=== PATIENT | female | born 1955 | race Caucasian/White ===

== ENCOUNTER 2018-04-16 13:04 | Emergency (ER) | payer BC ==
--- OUTSIDE RECORDS SUMMARY | 2018-04-16 13:07 | XMS REPORT ---
:1955 [facility] Address [address] [place] [address] Dr. Peter [address] [place] [id number] Care Team Providers Name Role Phone Unavailable Unavailable Unavailable Problems This patient has no known problems. Allergies, Adverse Reactions, Alerts This patient has no known allergies or adverse reactions. Medications This patient has no known medications.
[2018-04-16] MEDS ORDERED: ALBUTEROL 2.5 MG/3 ML NEB SOL ONE (15:04)
[2018-04-16] MEDS ORDERED: IPRATROPIUM BROM 0.5MG/2.5ML ONE (15:04)
--- NOTE | 2018-04-16 15:07 | RAD REPORT ---
EXAM DESCRIPTION: RAD - Chest Pa And Lat (2 Views) - 04/16/2018 2:55 pm CLINICAL HISTORY: Cough, shortness of breath COMPARISON: March 2017 TECHNIQUE: PA and lateral views of the chest were obtained. FINDINGS: The lungs are underinflated. No peripheral consolidations seen. Lung markings are prominen t, increased slightly from the comparison. Mild cardiomegaly is present. Vasculature is prominent. No pleural effusion or pneumothorax seen. No acute bony finding noted. No aortic abnormality. IMPRESSION: Mild cardiomegaly and prominent lung markings. Findings are increased over comparison. Findings could reflect a mild failure or volume overload. Nonspecific interstitial edema or interstit ial infiltrate possible as well.
[2018-04-16 16:17] LABS: Absolute Lymphocytes (CBC) 1.3 K/uL (0.7-4.9); Absolute Monocytes 0.5 K/uL (0.1-1.3); Absolute Neutrophil 4.9 K/uL (1.8-8.0); Basophils % 0.5 % (0-1.3); Eosinophils % 1.7 % (0-4.4); Hematocrit 44.8 % (36.0-45.0); Lymphocytes % 18.7 % (15.3-44.8); MPV 7.9 fL (7.6-11.3); Monocytes % 7.6 % (3.3-12.3); RBC Red Blood Cell Count 4.73 M/uL (3.86-4.86)
--- NOTE | 2018-04-16 16:31 | EKG ---
Test Date: 2018-04-16 Test Time: 15:03:07 Fuel Retrofitting Technician: ISSAC MEASUREMENT RESULTS: Intervals: Rate: 73 WV: 162 QRSD: 86 QT: 410 QTc: 451 [place]: P: 43 WV: 162 QRS: 94 T: 64 INTERPRETIVE STATEMENTS: Normal sinus rhythm Rightward axis Possible Inferior infarct, age undetermined Abnormal ECG Compared to ECG 11/19/2016 09:21:50 Right-axis deviation now present Sinus tachycardia no longer present Myocardial infarct finding still present Electronically Signed On 04-16-18 16:30:24 CRIMP SETTER by Gabriel Atkinson
[2018-04-16 16:34] LABS: Protime INR 1.1
[2018-04-16 16:40] LABS: ALT/SGPT 17 U/L (12-78); AST/SGOT 11 U/L (15-37); Albumin 3.5 g/dL (3.4-5.0); Alkaline Phosphatase 88 U/L (45-117); BUN Blood Urea Nitrogen 26 mg/dL (7-18); Bicarbonate 35 mmol/L (21-32); Bilirubin Direct 0.2 mg/dL (0-0.2); Bilirubin Total 0.6 mg/dL (0.2-1.0); Glucose Level 79 mg/dL (74-106); Magnesium 2.5 mg/dL (1.8-2.4); NT PRO-BNP 1253 pg/mL (<125); Protein, Total 9.1 g/dL (6.4-8.2); Sodium Level 142 mmol/L (136-145); Troponin (Emerg Dept Use Only) < 0.02 ng/mL (0.0-0.045)
--- NOTE | 2018-04-16 17:39 | ER ---
Nurse's Notes [facility] Name: Lili Hernandez Age: 62 yrs Sex: Female : 1955 Arrival Date: 04/16/2018 Time: 13:07 Bed 24 Private MD: JED SHAW Diagnosis: Acute pharyngitis;Unspecified combined systolic (congestive) and diastolic (congestive) heart failure;Cough Presentation: 04/16 13:27 Presenting complaint: Patient states: Alejandra had headaches off and on for a couple of sg days, dizziness starting today, reports being seen by her PCP and sent here to the Viral Upper Respiratory infection that they think I have, they did a flu swab but i dont yet know the results, pt reports having a dry cough, shortness of breath, denies N/V/D/Fever. Transition of care: patient was not received from another setting of care. Onset of symptoms was April 16, 2018. Risk Assessment: Do you want to hurt yourself or someone else? Patient reports no desire to harm self or others. Initial Sepsis Screen: Does the patient meet any 2 criteria? No. Patient's initial sepsis screen is negative. Does the patient have a suspected source of infection? No. Patient's initial sepsis screen is negative. Care prior to arrival: None. 13:27 Method Of Arrival: Ambulatory sg 13:27 Acuity: ERNA 3 sg Historical: - Allergies: 13:36 Bactrim; sg 13:36 Iodine; sg 13:36 TRIMETHOPRIM; sg - PMHx: 13:36 COPD; Diabetes - IDDM; Dialysis; has been off dialysis for 2 years; Hypertension; sg Hypothyroidism; Myocardial infarction; Renal Disease; - PSHx: 13:36 Heart stents; sg - Immunization history:: Adult Immunizations up to date. - Social history:: Smoking status: Patient/guardian denies using tobacco. - Ebola Screening: : Patient negative for fever greater than or equal to 101.5 degrees Fahrenheit, and additional compatible Ebola Virus Disease symptoms Patient denies exposure to infectious person Patient denies travel to an Ebola-affected area in the 21 days before illness onset No symptoms or risks identified at this time. Screenin:00 Abuse screen: Denies threats or abuse. Nutritional screening: No deficits noted. tl3 Tuberculosis screening: No symptoms or risk factors identified. Fall Risk None identified. Assessment: 15:30 General: Appears uncomfortable, obese, well groomed, well developed, well nourished, tl3 Behavior is calm, cooperative, appropriate for age. Pain: Complains of pain in right leg and left leg. Neuro: Level of Consciousness is awake, alert, obeys commands, Oriented to person, place, time, situation, Appropriate for age. Cardiovascular: Patient's skin is warm and dry. Respiratory: Airway is patent Respiratory effort is even, unlabored, Breath sounds are coarse bilaterally. GI: No signs and/or symptoms were reported involving the gastrointestinal system. : No signs and/or symptoms were reported regarding the genitourinary system. EENT: Throat is reddened. Derm: No signs and/or symptoms reported regarding the dermatologic system. Musculoskeletal: No signs and/or symptoms reported regarding the musculoskeletal system. 17:00 Reassessment: Patient appears in no apparent distress at this time. No changes from tl3 previously documented assessment. Patient and/or family updated on plan of care and expected duration. Pain level reassessed. Patient is alert, oriented x 3, equal unlabored respirations, skin warm/dry/pink. Vital Signs: 13:28 BP 140 / 72; Pulse 87; Resp 18; Pulse Ox 93% on R/A; Weight 113.4 kg (R); Height 5 ft. sg 0 in. (152.40 cm); Pain 6/10; 13:32 Temp 98.0; Pulse Ox 96% on R/A; sg 17:00 BP 142 / 98; Pulse 84; Resp 18; Pulse Ox 94% on R/A; tl3 13:28 Body Mass Index 48.82 (113.40 kg, 152.40 cm) sg ED Course: 13:07 Patient arrived in ED. rg4 13:07 JED SHAW is Private Physician. rg4 13:25 Flu and/or RSV swab sent to lab. jp3 13:28 Triage completed. sg 13:29 Arm band placed on. sg 13:57 Amish Walters PA is PHCP. cp 13:57 Amish Briggs MD is Attending Physician. cp 14:56 XRAY Chest Pa And Lat (2 Views) In Process Unspecified. EDMS 15:00 Inserted saline lock: 20 gauge in right antecubital area, using aseptic technique. tl3 Blood collected. 15:08 Richard Weems, RN is Primary Nurse. mg2 17:00 Patient has correct armband on for positive identification. Bed in low position. Call tl3 light in reach. Side rails up X 1. 17:00 No provider procedures requiring assistance completed. tl3 17:38 JED SHAW is Referral Physician. cp 19:10 IV discontinued, intact, bleeding controlled, No redness/swelling at site. Pressure tl3 dressing applied. Administered Medications: 15:08 Drug: Albuterol - atroVENT (3:1) (2.5 mg - 0.5 mg) 3 ml Route: Nebulizer; mg2 17:43 Follow up: Response: No adverse reaction tl3 17:42 Drug: Lasix 20 mg Route: IVP; Infused Over: 2 mins; Site: left wrist; tl3 19:08 Follow up: Response: No adverse reaction tl3 Outcome: 15:00 Discharged to home ambulatory. tl3 15:00 Condition: stable 15:00 Discharge instructions given to patient, Instructed on discharge instructions, follow up and referral plans. medication usage, Demonstrated understanding of instructions, follow-up care, medications, Prescriptions given X 2. 17:39 Discharge ordered by MD. cp 19:11 Patient left the ED. tl3 Signatures: Dispatcher [employer] EDMS Eliud Mckeon, RN RN Amish Boyd PA PA cp Garcia, Rubi rg4 Pamela Amor RN RN tl3 Richard Weems, KALYAN RN mg2 Mitchell Clarke jp3
--- NOTE | 2018-04-16 17:40 | EDPHYS ---
Physician Documentation [facility] Name: Lili Hernandez Age: 62 yrs Sex: Female : 1955 Arrival Date: 04/16/2018 Time: 13:07 Bed 24 Private MD: JED SHAW ED Physician Amsih Briggs HPI: 04/16 14:35 This 62 yrs old Female presents to ER via Ambulatory with complaints of Sore cp Throat. 14:35 The patient presents with sore throat. cp 14:35 Associated signs and symptoms: Pertinent positives: cough, headache, shortness of cp breath Pertinent negatives diarrhea, dysphagia, fever, vomiting. 14:35 Severity of symptoms: in the emergency department the symptoms are unchanged, despite cp home interventions. Historical: - Allergies: 13:36 Bactrim; sg 13:36 Iodine; sg 13:36 TRIMETHOPRIM; sg - PMHx: 13:36 COPD; Diabetes - IDDM; Dialysis; has been off dialysis for 2 years; Hypertension; sg Hypothyroidism; Myocardial infarction; Renal Disease; - PSHx: 13:36 Heart stents; sg - Immunization history:: Adult Immunizations up to date. - Social history:: Smoking status: Patient/guardian denies using tobacco. - Ebola Screening: : Patient negative for fever greater than or equal to 101.5 degrees Fahrenheit, and additional compatible Ebola Virus Disease symptoms Patient denies exposure to infectious person Patient denies travel to an Ebola-affected area in the 21 days before illness onset No symptoms or risks identified at this time. ROS: 14:40 Constitutional: Negative for body aches, chills, fever, poor PO intake. cp 14:40 Eyes: Negative for injury, pain, redness, and discharge. cp 14:40 ENT: Positive for sore throat, Negative for drainage from ear(s), ear pain, sinus congestion, difficulty swallowing, difficulty handling secretions. 14:40 Neck: Negative for pain with movement, pain at rest, stiffness. 14:40 Cardiovascular: Positive for edema, Negative for chest pain, palpitations. 14:40 Respiratory: Positive for cough, shortness of breath, Negative for wheezing. 14:40 Abdomen/GI: Negative for abdominal pain, nausea, vomiting, and diarrhea. 14:40 Skin: Negative for cellulitis, rash. 14:40 Neuro: Positive for dizziness, headache, Negative for altered mental status, syncope, cp weakness. 14:40 All other systems are negative. Exam: 14:45 Constitutional: The patient appears in no acute distress, alert, awake, non-toxic, well cp developed, well nourished. 14:45 Head/Face: Normocephalic, atraumatic. cp 14:45 Eyes: Periorbital structures: appear normal, Conjunctiva: normal, no exudate, no injection, Sclera: no appreciated abnormality, Lids and lashes: appear normal, bilaterally. 14:45 ENT: External ear(s): are unremarkable, Ear canal(s): are normal, clear, TM's: bulging, is not appreciated, bilaterally, dullness, bilaterally, erythema, is not appreciated, bilaterally, Nose: is normal, Mouth: Lips: moist, Oral mucosa: pink and intact, moist, Posterior pharynx: Airway: no evidence of obstruction, patent, Tonsils: are normal in appearance, Uvula: midline, swelling, is not appreciated, erythema, is not appreciated, exudate, is not appreciated. 14:45 Neck: ROM/movement: is normal, is supple, without pain, no range of motions limitations, no meningismus, no nuchal rigidity, Lymph nodes: no appreciated lymphadenopathy. 14:45 Chest/axilla: Inspection: normal, Palpation: is normal, no crepitus, no tenderness. 14:45 Cardiovascular: Rate: normal, Rhythm: regular, Edema: ankle edema, that is mild, JVD: is not appreciated. 14:45 Respiratory: the patient does not display signs of respiratory distress, Respirations: labored breathing, is not present, intercostal retractions, are absent, shallow respirations, are not present, Breath sounds: decreased breath sounds, that are mild, throughout, stridor, is not appreciated, wheezing: is not appreciated. 14:45 Abdomen/GI: Inspection: obese Bowel sounds: active, all quadrants, Palpation: abdomen is soft and non-tender, in all quadrants, rebound tenderness, is not appreciated. 14:45 Back: pain, is absent, ROM is normal. 14:45 Skin: cellulitis, is not appreciated, no rash present. 14:45 Neuro: Orientation: to person, place \T\ time. Mentation: is normal, Cerebellar function: is grossly normal, Motor: moves all fours, strength is normal, Sensation: is normal. 15:11 ECG was reviewed by the Attending Physician. cp Vital Signs: 13:28 BP 140 / 72; Pulse 87; Resp 18; Pulse Ox 93% on R/A; Weight 113.4 kg (R); Height 5 ft. sg 0 in. (152.40 cm); Pain 6/10; 13:32 Temp 98.0; Pulse Ox 96% on R/A; sg 17:00 BP 142 / 98; Pulse 84; Resp 18; Pulse Ox 94% on R/A; tl3 13:28 Body Mass Index 48.82 (113.40 kg, 152.40 cm) sg MDM: 13:58 Patient medically screened. cp 15:00 Differential diagnosis: apthous stomatitis, epiglottitis, group A strep tonsillitis, cp arnulfo's angina, peritonsillar abscess pharyngitis, retropharyngeal abcess upper respiratory infection, uvulitis, viral syndrome. 17:37 Data reviewed: vital signs, nurses notes, lab test result(s), EKG, radiologic studies, cp plain films, and as a result, I will discharge patient. 17:37 Test interpretation: by ED physician or midlevel provider: ECG, plain radiologic cp studies. Response to treatment: the patient's symptoms have mildly improved after treatment, and as a result, I will discharge patient. 04/16 14:32 Order name: Influenza Screen (a \T\ B); Complete Time: 16:52 cp 04/16 14:32 Order name: Basic Metabolic Panel; Complete Time: 16:52 cp 04/16 16:52 Interpretation: Normal except: CO2 35; BUN 26; CRE 1.46; GFR 37. cp 04/16 14:32 Order name: CBC with Diff; Complete Time: 16:52 cp 04/16 14:32 Order name: LFT's; Complete Time: 16:52 cp 04/16 16:53 Interpretation: Normal except: AST 11; TP 9.1; GLOB 5.6; A/G 0.6. cp 04/16 14:32 Order name: Magnesium; Complete Time: 16:52 cp 04/16 14:32 Order name: NT PRO-BNP; Complete Time: 16:52 cp 04/16 14:32 Order name: PT-INR; Complete Time: 16:52 cp 04/16 14:32 Order name: Troponin (emerg Dept Use Only); Complete Time: 16:52 04/16 14:32 Order name: EKG; Complete Time: 14:33 04/16 14:32 Order name: Cardiac monitoring; Complete Time: 17:37 04/16 14:32 Order name: XRAY Chest Pa And Lat (2 Views); Complete Time: 15:29 04/16 15:29 Interpretation: Report reviewed. 04/16 14:32 Order name: EKG - Nurse/Tech; Complete Time: 17:38 04/16 14:32 Order name: IV Saline Lock; Complete Time: 17:38 04/16 14:32 Order name: Labs collected and sent; Complete Time: 17:38 04/16 14:32 Order name: O2 Per Protocol; Complete Time: 17:38 04/16 14:32 Order name: O2 Sat Monitoring; Complete Time: 17:38 cp EC:11 Rate is 73 beats/min. Rhythm is regular. DE interval is normal. QRS interval is normal. cp QT interval is normal. T waves are Flattened in lead aVL. Interpreted by me. Reviewed by me. Administered Medications: 15:08 Drug: Albuterol - atroVENT (3:1) (2.5 mg - 0.5 mg) 3 ml Route: Nebulizer; mg2 17:43 Follow up: Response: No adverse reaction tl3 17:42 Drug: Lasix 20 mg Route: IVP; Infused Over: 2 mins; Site: left wrist; tl3 19:08 Follow up: Response: No adverse reaction tl3 Disposition: 04/17 07:07 Co-signature as Attending Physician, Amish Briggs MD I agree with the assessment and ana plan of care. Disposition: 04/16/18 17:39 Discharged to Home. Impression: Acute pharyngitis, Unspecified combined systolic (congestive) and diastolic (congestive) heart failure, Cough. - Condition is Stable. - Discharge Instructions: Pharyngitis, Cool Mist Vaporizer, Cough, Adult. - Prescriptions for Zithromax Z- Shmuel 250 mg Oral Tablet - take 1 tablet by ORAL route as directed for 5 days Day 1 - take two (2) tablets one time. Day 2, 3, 4 , 5 take one (1) tablet once daily.; 6 tablet. Albuterol Sulfate 90 mcg/actuation - inhale 1-2 puff by INHALATION route every 4-6 hours; 1 Inhaler. Medrol (Shmuel) 4 mg Oral Tablets, Dose Pack - take 1 tablet by ORAL route as directed - follow package instructions; 1 packet. - Medication Reconciliation Form, Thank You Letter, Antibiotic Education, Prescription Opioid Use form. - Follow up: JED SHAW; When: 2 - 3 days; Reason: Recheck today's complaints. - Problem is new. - Symptoms have improved. Signatures: Dispatcher [employer] EDMA Eliud Mckeon, RN RN sg Amish Briggs MD MD cha Page, Corey PA PA cp Pamela Amor, RN RN tl3 Richard Weems RN RN mg2 Corrections: (The following items were deleted from the chart) 04/16 18:39 14:33 Group A Streptococcus Rapid Sc+[id number].LAB.BRZ ordered. [facility] 19:11 17:39 04/16/2018 17:39 Discharged to Home. Impression: Acute pharyngitis; Unspecified tl3 combined systolic (congestive) and diastolic (congestive) heart failure; Cough. Condition is Stable. Forms are Medication Reconciliation Form, Thank You Letter, Antibiotic Education, Prescription Opioid Use. Follow up: JED SHAW; When: 2 - 3 days; Reason: Recheck today's complaints. Problem is new. Symptoms have improved. cp
[2018-04-16] MEDS ORDERED: FUROSEMIDE 20 MG/ 2ML VIAL ONE (17:50)
[2018-04-16 20:48] VITALS: TEMP 98
[2018-04-16 20:49] VITALS: BP 142/98; O2SAT 94
== END 2018-04-16 19:11 | disposition home or self-care (01) ==
LOC: ER 13:04
DX: J02.9 Acute pharyngitis, unspecified (principal); I11.0 Hypertensive heart disease with heart failure; I50.40 Unspecified combined systolic (congestive) and diastolic (congestive) heart failure; I25.2 Old myocardial infarction; Z95.5 Presence of coronary angioplasty implant and graft
CPT/HCPCS: 36415; 71046; 80048; 80076; 83735; 83880; 84484; 85025; 85610; 87804; 93005; 94640; 96374; 99284; J1940

== ENCOUNTER 2018-05-26 11:17 | Inpatient (IN) | payer BC ==
--- OUTSIDE RECORDS SUMMARY | 2018-05-26 11:19 | XMS REPORT ---
:1955 [facility] Address [address] [place] [address] Dr. Peter [address] [place] [id number] Care Team Providers Name Role Phone Unavailable Unavailable Unavailable Problems This patient has no known problems. Allergies, Adverse Reactions, Alerts This patient has no known allergies or adverse reactions. Medications This patient has no known medications.
[2018-05-26] MEDS ORDERED: NA CHLORIDE 0.9% 500 ML ONE (11:45)
[2018-05-26 12:08] LABS: Absolute Lymphocytes (CBC) 1.4 K/uL (0.7-4.9); Absolute Monocytes 0.5 K/uL (0.1-1.3); Basophils % 0.7 % (0-1.3); Eosinophils % 1.5 % (0-4.4); Hematocrit 43.7 % (36.0-45.0); Lymphocytes % 19.4 % (15.3-44.8); MPV 7.9 fL (7.6-11.3); Monocytes % 6.9 % (3.3-12.3); RBC Red Blood Cell Count 4.55 M/uL (3.86-4.86)
[2018-05-26 12:17] LABS: Barbiturates NEGATIVE (NEGATIVE); Benzodiazepines NEGATIVE (NEGATIVE); Cocaine NEGATIVE (NEGATIVE); METHAMPHETAM NEGATIVE (NEGATIVE); Methadone NEGATIVE (NEGATIVE); Opiates NEGATIVE (NEGATIVE); Phencyclidine NEGATIVE (NEGATIVE); THC Cannibis NEGATIVE (NEGATIVE)
[2018-05-26 12:22] LABS: Urine Blood 2+ (NEG); Urine Glucose NEGATIVE (NEG); Urine Protein 3+ (NEG); Urine Specific Gravity >1.030 (1.005-1.030); Urine pH 5.5 (5.0-7.0)
[2018-05-26 12:29] LABS: Protime INR 1.03
[2018-05-26] MEDS ORDERED: METHYLPREDNISOLONE 125 MG INJ ONE (13:01)
[2018-05-26] MEDS ORDERED: LEVALBUTEROL 1.25 MG/3 ML NEB ONE (13:01)
[2018-05-26] MEDS ORDERED: IPRATROPIUM BROM 0.5MG/2.5ML ONE (13:01)
[2018-05-26 13:12] LABS: Magnesium 2.6 mg/dL (1.8-2.4); NT PRO-BNP 888 pg/mL (<125); Troponin (Emerg Dept Use Only) < 0.02 ng/mL (0.0-0.045)
--- NOTE | 2018-05-26 13:39 | RAD REPORT ---
EXAM DESCRIPTION: US - Extrem Venous W Compress Noah - 05/26/2018 1:12 pm CLINICAL HISTORY: Pain;Swelling Bilateral leg edema and swelling. COMPARISON: DUPLEX BYPASS GRAFTS LIMIT UNI dated 09/12/2012 TECHNIQUE: Real-time sonographic interrogation of the left and right lower extremity deep venous sys tems was performed. FINDINGS: Normal compressibility, flow augmentation, phasic flow and spontaneous flow is identified in both the left and right lower extremity deep venous systems. IMPRESSION: No sonographic evidence of left or right lower extremity deep venous thrombosis.
[2018-05-26 13:49] LABS: Arterial Blood Carboxyhemoglob 1.3 % (0-1.5); Blood Gas Oxyhemoglobin 96.4 % (94-97); Blood O2 Saturation 98.5 % (92-98.5)
[2018-05-26 13:59] LABS: ALT/SGPT 16 U/L (12-78); AST/SGOT 7 U/L (15-37); Albumin 3.7 g/dL (3.4-5.0); Alkaline Phosphatase 89 U/L (45-117); BUN Blood Urea Nitrogen 23 mg/dL (7-18); Bicarbonate 37 mmol/L (21-32); Bilirubin Direct 0.2 mg/dL (0-0.2); Bilirubin Total 0.5 mg/dL (0.2-1.0); Glucose Level 181 mg/dL (74-106); Potassium 3.7 mmol/L (3.5-5.1); Protein, Total 8.4 g/dL (6.4-8.2); Sodium Level 143 mmol/L (136-145)
--- NOTE | 2018-05-26 14:08 | ER ---
Nurse's Notes [facility] Name: Lili Hernandez Age: 62 yrs Sex: Female : 1955 Arrival Date: 05/26/2018 Time: :19 Bed 14 Private MD: Diagnosis: Dyspnea;Chronic obstructive pulmonary disease with (acute) exacerbation;Cardiomegaly;Unspecified combined systolic (congestive) and diastolic (congestive) heart failure;Acidosis;Chronic respiratory failure with hypercapnia;Obesity, unspecified;Cystitis Presentation: 05/26 11:20 Initial Sepsis Screen: Does the patient meet any 2 criteria? No. Patient's initial rb1 sepsis screen is negative. Does the patient have a suspected source of infection? No. Patient's initial sepsis screen is negative. 11:26 Presenting complaint: Patient states: "I have been talking to people that aren't there hb and today I was seeing vampires and I screamed that I won the lottery. My family said I have been hallucinating for the last week or two, I think it may be my new COPD medication." Pt started ipratropium-albuterol neb 3 weeks ago. Also reports SOB and bilateral lower leg swelling x 3-4 days. Transition of care: patient was not received from another setting of care. Onset of symptoms is unknown. Risk Assessment: Do you want to hurt yourself or someone else? Patient reports no desire to harm self or others. Care prior to arrival: None. 11:26 Method Of Arrival: Ambulatory hb 11:26 Acuity: ERNA 3 hb Historical: - Allergies: 11:29 Bactrim; hb 11:29 Iodine; hb 11:29 TRIMETHOPRIM; hb - Home Meds: 11:29 aspirin 81 mg Oral TbEC 1 tab once daily [Active]; Crestor 40 mg Oral tab 1 tab once hb daily [Active]; furosemide 40 mg Oral tab 1 tab once daily [Active]; levothyroxine 75 mcg tab 1 tab once daily [Active]; Nitrostat 0.4 mg SL subl 1 tab every 5 minutes [Active]; Plavix 75 mg Oral tab 1 tab once daily [Active]; - PMHx: 11:29 COPD; Diabetes - IDDM; Dialysis; has been off dialysis for 2 years; Hypertension; hb Hypothyroidism; Myocardial infarction; Renal Disease; - PSHx: 11:29 Heart stents; hb - Immunization history:: Adult Immunizations up to date. - Social history:: Smoking status: Patient/guardian denies using tobacco. - Ebola Screening: : No symptoms or risks identified at this time. - Family history:: not pertinent. Screenin:29 Abuse screen: Denies threats or abuse. Denies injuries from another. Nutritional hb screening: No deficits noted. Tuberculosis screening: No symptoms or risk factors identified. Fall Risk None identified. Assessment: 11:20 General: Appears in no apparent distress. comfortable, obese, Behavior is calm, rb1 cooperative. Pain: Denies pain. Neuro: Level of Consciousness is awake, alert, obeys commands, Oriented to person, place, time, situation, Pt. reports hallucinations. Is seeing vampires and she thinks people are in her house when nobody is there. Pt. reports taking Ipratropium [place] and Albuterol x 3 weeks and she thinks she is having a reaction to the medication.. Cardiovascular: Capillary refill < 3 seconds is brisk in bilateral fingers. Respiratory: Airway is patent Respiratory effort is even, unlabored, Respiratory pattern is regular, symmetrical. GI: No signs and/or symptoms were reported involving the gastrointestinal system. : No signs and/or symptoms were reported regarding the genitourinary system. Derm: round spots noted over generalized body, pt. reports that she got them after she had the shingles about a year ago. Musculoskeletal: Range of motion: intact in all extremities. 12:20 Reassessment: Patient appears in no apparent distress at this time. No changes from rb1 previously documented assessment. 12:59 Reassessment: Pt. went to US. rb1 14:00 Reassessment: Patient appears in no apparent distress at this time. Patient and/or rb1 family updated on plan of care and expected duration. Pain level reassessed. Patient is alert, oriented x 3, equal unlabored respirations, skin warm/dry/pink. Pt. put on BiPap 13 over 6 at 30%. 15:00 Reassessment: Patient appears in no apparent distress at this time. No changes from rb1 previously documented assessment. 15:50 Reassessment: Called report to KALYAN Adams. Information on the SBAR was given. All rb1 questions asked and answered. 16:00 Reassessment: Patient appears in no apparent distress at this time. Patient and/or rb1 family updated on plan of care and expected duration. Pain level reassessed. Patient is alert, oriented x 3, equal unlabored respirations, skin warm/dry/pink. Family at bedside. Patient denies pain at this time. Vital Signs: 11:28 BP 112 / 48; Pulse 92; Resp 20; Temp 97.9; Pulse Ox 90% on R/A; Pain 0/10; hb 12:15 BP 147 / 92; Pulse 85; Resp 25; Pulse Ox 91% on R/A; rb1 13:15 rb1 14:30 BP 161 / 83; Pulse 82; Resp 31; Pulse Ox 100% ; rb1 15:30 BP 147 / 69; Pulse 82; Resp 29; Pulse Ox 99% on R/A; rb1 13:15 Pt. is in US rb1 14:30 BiPap rb1 ED Course: 11:19 Patient arrived in ED. as 11:20 Patient has correct armband on for positive identification. Bed in low position. Call rb1 light in reach. Side rails up X 1. Pulse ox on. NIBP on. 11:25 Lauren Rehman, KALYAN is Primary Nurse. rb1 11:26 Amish Briggs MD is Attending Physician. ana 11:28 Triage completed. hb 11:29 Arm band placed on. hb 11:55 Inserted saline lock: 22 gauge in right Blood collected. rb1 13:18 US Extremity Venous W Compression Noah In Process Unspecified. EDMS 14:01 Walt Riojas MD is Hospitalizing Provider. ana 14:09 XRAY Chest (1 view) In Process Unspecified. EDMS 16:07 No provider procedures requiring assistance completed. Patient admitted, IV remains in rb1 place. Administered Medications: Discontinued: NS 0.9% 500 ml IV at bolus once 11:55 Drug: NS 0.9% 500 ml Route: IV; Rate: bolus; Site: right antecubital; rb1 12:10 Follow up: IV Status: Order to discontinue infusion rb1 12:55 Drug: SOLU-Medrol 125 mg Route: IVP; Site: right antecubital; rb1 13:10 Follow up: Response: No adverse reaction rb1 12:55 Drug: Xopenex 2.5 mg Route: Inhalation; rb1 12:55 Drug: AtroVENT Aerosol 0.5 mg Route: Inhalation; rb1 14:40 Drug: Lasix 40 mg Route: IVP; Site: right antecubital; rb1 15:00 Follow up: Response: No adverse reaction rb1 Outcome: 14:07 Decision to Hospitalize by Provider. ana 16:07 Patient left the ED. rb1 16:07 Admitted to Med/surg accompanied by tech, family with patient, via wheelchair, room rb1 231, with oxygen, with chart, Report called to KALYAN Adams 16:07 Condition: stable 16:07 Instructed on the need for admit. Signatures: Dispatcher [employer] EDAmish Angel MD MD cha Martinez, Amelia as Barber, Rebecca, KALYAN RN [facility] Melissa Yang RN RN Corrections: (The following items were deleted from the chart) 11:34 11:26 Presenting complaint: Patient states: "I have been talking to people that aren't hb there and today I screamed that I won the lottery. My family said I have been hallucinating for the last week or ramona, I think it may be my new COPD medication." Pt started ipratropium-albuterol neb 3 weeks ago. Also reports SOB and bilateral lower leg swelling x 3-4 days hb
--- NOTE | 2018-05-26 14:08 | EDPHYS ---
Physician Documentation [facility] Name: Lili Hernandez Age: 62 yrs Sex: Female : 1955 Arrival Date: 05/26/2018 Time: 11:19 Bed 14 Private MD: ED Physician Amish Briggs HPI: 05/26 12:35 This 62 yrs old Female presents to ER via Ambulatory with complaints of ana Medication Reaction-Hallucinations. 12:35 This 62 yrs old Female presents to ER via Ambulatory with complaints of ana Medication Reaction-Hallucinations. 12:35 The patient presents with hallucinations. Onset: The symptoms/episode began/occurred ana today. Associated signs and symptoms: Pertinent positives: shortness of breath. Possible causes: copd. The patient has shortness of breath with light activity. Onset: The symptoms/episode began/occurred 2 day(s) ago. The patient's shortness of breath has no apparent modifying factors. Historical: - Allergies: 11:29 Bactrim; hb 11:29 Iodine; hb 11:29 TRIMETHOPRIM; hb - Home Meds: 11:29 aspirin 81 mg Oral TbEC 1 tab once daily [Active]; Crestor 40 mg Oral tab 1 tab once hb daily [Active]; furosemide 40 mg Oral tab 1 tab once daily [Active]; levothyroxine 75 mcg tab 1 tab once daily [Active]; Nitrostat 0.4 mg SL subl 1 tab every 5 minutes [Active]; Plavix 75 mg Oral tab 1 tab once daily [Active]; - PMHx: 11:29 COPD; Diabetes - IDDM; Dialysis; has been off dialysis for 2 years; Hypertension; hb Hypothyroidism; Myocardial infarction; Renal Disease; - PSHx: 11:29 Heart stents; hb - Immunization history:: Adult Immunizations up to date. - Social history:: Smoking status: Patient/guardian denies using tobacco. - Ebola Screening: : No symptoms or risks identified at this time. - Family history:: not pertinent. ROS: 12:35 Constitutional: Negative for fever, chills, and weight loss, Eyes: Negative for injury, ana pain, redness, and discharge, ENT: Negative for injury, pain, and discharge, Neck: Negative for injury, pain, and swelling, Cardiovascular: Negative for chest pain, palpitations, and edema, Abdomen/GI: Negative for abdominal pain, nausea, vomiting, diarrhea, and constipation, Back: Negative for injury and pain, : Negative for injury, bleeding, discharge, and swelling, MS/Extremity: Negative for injury and deformity, Skin: Negative for injury, rash, and discoloration, Psych: Negative for depression, anxiety, suicide ideation, homicidal ideation, and hallucinations, Allergy/Immunology: Negative for hives, rash, and allergies, Endocrine: Negative for neck swelling, polydipsia, polyuria, polyphagia, and marked weight changes, Hematologic/Lymphatic: Negative for swollen nodes, abnormal bleeding, and unusual bruising. 12:35 Respiratory: Positive for shortness of breath. 12:35 Neuro: Positive for hallucinations. Exam: 12:35 Constitutional: This is a well developed, well nourished patient who is awake, alert, ana and in no acute distress. Head/Face: Normocephalic, atraumatic. Eyes: Pupils equal round and reactive to light, extra-ocular motions intact. Lids and lashes normal. Conjunctiva and sclera are non-icteric and not injected. Cornea within normal limits. Periorbital areas with no swelling, redness, or edema. ENT: Nares patent. No nasal discharge, no septal abnormalities noted. Tympanic membranes are normal and external auditory canals are clear. Oropharynx with no redness, swelling, or masses, exudates, or evidence of obstruction, uvula midline. Mucous membranes moist. Neck: Trachea midline, no thyromegaly or masses palpated, and no cervical lymphadenopathy. Supple, full range of motion without nuchal rigidity, or vertebral point tenderness. No Meningismus. Chest/axilla: Normal chest wall appearance and motion. Nontender with no deformity. No lesions are appreciated. Cardiovascular: Regular rate and rhythm with a normal S1 and S2. No gallops, murmurs, or rubs. Normal PMI, no JVD. No pulse deficits. Abdomen/GI: Soft, non-tender, with normal bowel sounds. No distension or tympany. No guarding or rebound. No evidence of tenderness throughout. Back: No spinal tenderness. No costovertebral tenderness. Full range of motion. Female : Normal external genitalia. Skin: Warm, dry with normal turgor. Normal color with no rashes, no lesions, and no evidence of cellulitis. MS/ Extremity: Pulses equal, no cyanosis. Neurovascular intact. Full, normal range of motion. Neuro: Awake and alert, GCS 15, oriented to person, place, time, and situation. Cranial nerves II-XII grossly intact. Motor strength 5/5 in all extremities. Sensory grossly intact. Cerebellar exam normal. Normal gait. Psych: Awake, alert, with orientation to person, place and time. Behavior, mood, and affect are within normal limits. 12:35 Respiratory: mild respiratory distress is noted, Respirations: labored breathing, that is mild, Breath sounds: decreased breath sounds, that are moderate, are heard in the right upper lobe, left upper lobe, right middle lobe, left lower lobe, right lower lobe, left posterior upper lobe, right posterior upper lobe, left posterior lower lobe, right posterior middle lobe and right posterior lower lobe. Vital Signs: 11:28 BP 112 / 48; Pulse 92; Resp 20; Temp 97.9; Pulse Ox 90% on R/A; Pain 0/10; hb 12:15 BP 147 / 92; Pulse 85; Resp 25; Pulse Ox 91% on R/A; rb1 13:15 rb1 14:30 BP 161 / 83; Pulse 82; Resp 31; Pulse Ox 100% ; rb1 15:30 BP 147 / 69; Pulse 82; Resp 29; Pulse Ox 99% on R/A; rb1 13:15 Pt. is in [place] rb1 14:30 BiPap rb1 MDM: 11:26 Patient medically screened. [facility] 12:37 Data reviewed: vital signs, nurses notes, lab test result(s), EKG, radiologic studies, ana plain films. 05/26 11:29 Order name: Acetaminophen [facility] 05/26 11:29 Order name: Basic Metabolic Panel [facility] 05/26 11:29 Order name: CBC with Diff; Complete Time: 12:35 [facility] 05/26 11:29 Order name: ETOH Level; Complete Time: 12:35 [facility] 05/26 11:29 Order name: Hepatic Function [facility] 05/26 11:29 Order name: PT-INR; Complete Time: 13:15 [facility] 05/26 11:29 Order name: Ptt, Activated; Complete Time: 13:15 [facility] 05/26 11:29 Order name: Salicylate; Complete Time: 13:15 [facility] 05/26 11:29 Order name: Urine Drug Screen; Complete Time: 12:35 [facility] 05/26 12:01 Order name: Urine Dipstick--Ancillary (enter results); Complete Time: 12:35 05/26 12:01 Order name: Urine --Ancillary (enter results); Complete Time: 12:35 05/26 12:32 Order name: Magnesium; Complete Time: 13:15 [facility] 05/26 12:32 Order name: NT PRO-BNP; Complete Time: 13:15 [facility] 05/26 12:32 Order name: Troponin (emerg Dept Use Only); Complete Time: 13:15 [facility] 05/26 11:29 Order name: EKG; Complete Time: 11:30 [facility] 05/26 11:29 Order name: EKG - Nurse/Tech; Complete Time: 12:00 [facility] 05/26 11:29 Order name: IV Saline Lock; Complete Time: 12:00 [facility] 05/26 11:29 Order name: Labs collected and sent; Complete Time: 12:00 [facility] 05/26 11:29 Order name: Urine Dipstick-Ancillary (obtain specimen); Complete Time: 12:00 [facility] 05/26 12:32 Order name: XRAY Chest (1 view) [facility] 05/26 12:32 Order name: Cardiac monitoring; Complete Time: 13:12 [facility] 05/26 12:32 Order name: US Extremity Venous W Compression Noah; Complete Time: 14:00 [facility] 05/26 12:32 Order name: Echo w/ Doppler [facility] 05/26 12:34 Order name: ABG; Complete Time: 14:00 [facility] 05/26 13:47 Order name: BIPAP [facility] 05/26 12:32 Order name: O2 Per Protocol; Complete Time: 13:12 [facility] 05/26 12:32 Order name: O2 Sat Monitoring; Complete Time: 13:12 [facility] Administered Medications: Discontinued: NS 0.9% 500 ml IV at bolus once 11:55 Drug: NS 0.9% 500 ml Route: IV; Rate: bolus; Site: right antecubital; rb1 12:10 Follow up: IV Status: Order to discontinue infusion rb1 12:55 Drug: SOLU-Medrol 125 mg Route: IVP; Site: right antecubital; rb1 13:10 Follow up: Response: No adverse reaction rb1 12:55 Drug: Xopenex 2.5 mg Route: Inhalation; rb1 12:55 Drug: AtroVENT Aerosol 0.5 mg Route: Inhalation; rb1 14:40 Drug: Lasix 40 mg Route: IVP; Site: right antecubital; rb1 15:00 Follow up: Response: No adverse reaction rb1 Disposition: 05/26/18 14:07 Hospitalization ordered by Walt Riojas for Inpatient Admission. Preliminary diagnosis are Dyspnea, Chronic obstructive pulmonary disease with (acute) exacerbation, Cardiomegaly, Unspecified combined systolic (congestive) and diastolic (congestive) heart failure, Acidosis, Chronic respiratory failure with hypercapnia, Obesity, unspecified, Cystitis. - Bed requested for Telemetry/MedSurg (Inpatient). - Status is Inpatient Admission. rb1 - Condition is Fair. - Problem is new. - Symptoms have improved. UTI on Admission? Yes Signatures: Dispatcher [employer] EDMS Yoly Luna RN RN dw Amish Briggs MD MD cha Barber, Rebecca, RN RN rb1 Melissa Yang RN RN Corrections: (The following items were deleted from the chart) 15:37 14:07 Hospitalization Ordered by Walt Riojas MD for Inpatient Admission. Preliminary dw diagnosis is Dyspnea; Chronic obstructive pulmonary disease with (acute) exacerbation; Cardiomegaly; Unspecified combined systolic (congestive) and diastolic (congestive) heart failure; Acidosis; Chronic respiratory failure with hypercapnia; Obesity, unspecified; Cystitis. Bed requested for Telemetry/MedSurg (Inpatient). Status is Inpatient Admission. Condition is Fair. Problem is new. Symptoms have improved. UTI on Admission? Yes. [facility] 16:07 15:37 05/26/2018 14:07 Hospitalization Ordered by Walt Riojas MD for Inpatient rb1 Admission. Preliminary diagnosis is Dyspnea; Chronic obstructive pulmonary disease with (acute) exacerbation; Cardiomegaly; Unspecified combined systolic (congestive) and diastolic (congestive) heart failure; Acidosis; Chronic respiratory failure with hypercapnia; Obesity, unspecified; Cystitis. Bed requested for Telemetry/MedSurg (Inpatient). Status is Inpatient Admission. Condition is Fair. Problem is new. Symptoms have improved. UTI on Admission? Yes. dw
--- NOTE | 2018-05-26 14:16 | RAD REPORT ---
EXAM DESCRIPTION: RAD - Chest Single View - 05/26/2018 2:08 pm CLINICAL HISTORY: DYSPNEA Chest pain. COMPARISON: Chest Pa And Lat (2 Views) dated 04/16/2018; Chest Pa And Lat (2 Views) dated 03/10/2017; Chest Single View dated 11/15/2016; Chest Single View dated 09/07/2015 FINDINGS: Portable technique limits examination quality. Mild interstitial pulmonary edema is present. The heart is moderately enlarged in size. No displaced fractures. IMPRESSION: Mild CHF versus volume overload pattern.
[2018-05-26] MEDS ORDERED: FUROSEMIDE 40 MG/4 ML VIAL ONE (14:44)
[2018-05-26] MEDS ORDERED: ONDANSETRON 4 MG/2 ML VIAL IV PRN (16:52)
[2018-05-26] MEDS ORDERED: ACETAMINOPHEN 500 MG TAB PO PRN (16:52)
[2018-05-26] MEDS ORDERED: IPRATROPIUM BROM 0.5MG/2.5ML NEB PRN (16:52)
[2018-05-26] MEDS ORDERED: ALBUTEROL 2.5 MG/3 ML NEB SOL NEB PRN (16:52)
[2018-05-26] MEDS ORDERED: FUROSEMIDE 40 MG/4 ML VIAL IV SCH (17:00)
[2018-05-26] MEDS ORDERED: NITROGLYCERIN 0.4 MG/TAB SL PRN (17:04)
[2018-05-26] MEDS ORDERED: CEFTRIAXONE 1 GM/NS 50 ML 1 GM/50 ML BAG IV SCH (17:15)
[2018-05-26 17:31] VITALS: BMI 47.9
[2018-05-26] MEDS ORDERED: ENOXAPARIN 40 MG/0.4 ML SQ SCH (18:00)
[2018-05-26 18:33] LABS: Arterial Blood Carboxyhemoglob 1.8 % (0-1.5); Blood Gas Oxyhemoglobin 91.9 % (94-97); Blood O2 Saturation 94.2 % (92-98.5)
[2018-05-26] MEDS: CEFTRIAXONE/SWI 1gm 1 GM/10 ML SYR IVP SCH (18:34)
--- NOTE | 2018-05-26 19:05 | EKG ---
Test Date: 2018-05-26 Test Time: 11:46:17 Windows Server Engineer: CHEVY MEASUREMENT RESULTS: Intervals: Rate: 92 VA: 170 QRSD: 84 QT: 362 QTc: 447 [place]: P: 65 VA: 170 QRS: 97 T: 68 INTERPRETIVE STATEMENTS: Sinus rhythm with marked sinus arrhythmia with occasional premature ventricular complexes Rightward axis Possible Inferior infarct, age undetermined Abnormal ECG Compared to ECG 04/16/2018 15:03:07 Ventricular premature complex(es) now present Myocardial infarct finding still present Electronically Signed On 05-26-18 19:02:59 MANAGER CONSUMER INSIGHTS by Gabriel Atkinson
[2018-05-26 20:42] LABS: Urine Appearance CLEAR; Urine Bilirubin NEGATIVE (NEG); Urine Blood TRACE (NEG); Urine Color YELLOW; Urine Glucose 1+ (NEG); Urine Microscopic Reflex ORDER UMIC; Urine Protein TRACE (NEG); Urine Specific Gravity <=1.005 (1.005-1.030); Urine Urobilinogen 0.2 mg/dL (0.2-1.0)
[2018-05-26 20:53] LABS: Urine Bacteria <20 /HPF (<20); Urine Culture Reflex Order REFLEXED; Urine Mucus 1+ /HPF (NONE SEEN)
[2018-05-26] MEDS: METOPROLOL TAR 50 MG TAB PO SCH ×2 (21:00→21:30)
[2018-05-26] MEDS ORDERED: FAMOTIDINE 20 MG TAB PO SCH (21:00)
[2018-05-26] MEDS: FAMCICLOVIR 250 MG PO SCH (21:00)
[2018-05-26] MEDS: ROSUVASTATIN 10 MG TAB PO SCH ×2 (21:00→21:31)
[2018-05-26] MEDS: METHYLPREDNISOLONE 40 MG INJ IV SCH (21:31)
--- NOTE | 2018-05-27 04:35 | HP ---
Date of Admission: 05/26/2018 Code Status: Full. Chief Complaint: Shortness of breath. History Of Present Illness: The patient is a 62-year-old female with past medical history of COPD; congestive heart failure; obstructive sleep apnea, on CPAP which she is largely noncompliant; hypertension; diabetes; chronic kidney disease, stage 3; coronary artery disease, status post stent placement, who was in her usual state of health until the day prior to admission when the patient had sudden onset of shortness of breath. The patient has been confused as well , hallucinating and seeing things that are not there according to the . The patient's symptoms are constant, moderate, progressively worsening. Therefore, she was brought into the ER. Upon arrival, her vital signs showed O2 sats of 90% on room air. She was confused. Her white count was normal. Her blood gas, however, did show acidosis with pCO2 of 78. The patient was started on BiPAP and had significant improvement in her condition. The patient was then referred for admission. When seen in the ER, she was awake, alert, oriented x2 with some mild confusion. Past Medical History: Hypertension; diabetes; chronic kidney disease, stage 3; coronary artery disease, status post stent; COPD; congestive heart failure with last known ejection fraction of 65% with diastolic dysfunction. Surgical History: She had previous renal dialysis catheter. Allergies: TO IODINE, BACTRIM, AND RED DYE. Medications: List reviewed. Social History: The patient is , lives at home. Does not smoke. Does use alcohol occasionally. Independent in her activities of daily living. Family History: Negative for any premature coronary artery disease. Review of Systems: An 11-point system reviewed, negative except as per HPI. Physical Examination: Vital Signs: Temperature 97.9, heart rate 92, blood pressure 112/48, respirations 31, O2 90% on room air. General: Awake, alert, oriented x2, ill-appearing elderly female, confused. HEENT: Normocephalic, atraumatic. PERRLA. EOMI. Moist mucous membranes. Oropharynx is clear. Conjunctiva is anicteric. Neck: Supple. JVD is present. Trachea midline. CV: S1, S2. Regular rate and rhythm. Peripheral pulses present. Respiratory: Diminished breath sounds. Some wheezing is heard. No rhonchi. The patient is tachypneic with use of accessory muscles present. Gastrointestinal: Abdomen is soft, nontender, nondistended. Positive bowel sounds. No guarding or rigidity. Extremities: No clubbing or cyanosis. The patient has 3+ lower extremity edema bilaterally. Skin: Chronic venous stasis changes. Neuro: Cranial nerves 2 through 12 intact grossly. No focal neurological deficits. Speech is normal. Laboratory Data: WBC 7, H and H 14.3 and 43.7, platelets 254, neutrophils 79%. INR 1.03. ABG; pH 7.25, pCO2 78.5, PO2 146, bicarb 33. Sodium 142, potassium 3.7, chloride 103, CO2 37, BUN 23, creatinine 1.79, glucose 181, calcium 9.3, magnesium 2.6. Troponin less than 0.02. BNP 888. Albumin 3.7. UDS is negative. Urine, negative nitrite, trace leukocyte esterase, 3+ protein. Doppler venous negative for DVT in either lower extremity. Chest x- ray personally reviewed, shows mild CHF versus volume overload pattern. Assessment And Plan: A 62-year-old female with: 1. Acute respiratory failure with hypercapnia and hypoxia, improved with BiPAP secondary to chronic obstructive pulmonary disease. 2. Acute chronic obstructive pulmonary disease exacerbation. We will start on nebulizer treatments and IV steroids. We will monitor on continuous pulse oximetry. 3. Acute diastolic heart failure exacerbation. We will start on diuretics. We will continue SOLOMON inhibitor, beta-kadie. Monitor I's and O's strictly, daily weights, fluid restriction. 4. CO2 narcosis. The patient's confusion is improving. We will continue with BiPAP and repeat ABG. No longer having any hallucinations in the ER. 5. Essential hypertension. We will resume home medications as appropriate. 6. Diabetes mellitus type 2, insulin requiring with hyperglycemia. We will continue with home dose of sliding scale insulin and monitor Accu-Cheks. 7. Hypothyroidism. Continue Synthroid. 8. Coronary artery disease, [place] artery and tetlin heart, stable. 9. Chronic kidney disease, stage 3. Creatinine is around baseline. We will continue to monitor. 10. Deep vein thrombosis prophylaxis with Lovenox renally dosed. 11. UTI: Rocephin. f/up on cultures. Plan: Admit the patient to Med-Surg, place an inpatient. Length of stay greater than 2 midnights. /KENNEDY Voice ID: [id number] MTDD
[2018-05-27] MEDS: LEVOTHYROXINE SOD 0.088 MG TAB PO SCH (05:43)
[2018-05-27 06:25] LABS: Absolute Lymphocytes (CBC) 0.4 K/uL (0.7-4.9); Absolute Monocytes 0.1 K/uL (0.1-1.3); Absolute Neutrophil 6.4 K/uL (1.8-8.0); Basophils % 0.1 % (0-1.3); Hematocrit 42.8 % (36.0-45.0); Lymphocytes % 6.3 % (15.3-44.8); Monocytes % 1.6 % (3.3-12.3); RBC Red Blood Cell Count 4.45 M/uL (3.86-4.86)
[2018-05-27 07:10] LABS: Blood Morphology Comment NOT SEEN (NOT SEEN); Platelet Estimate ADEQ
[2018-05-27] MEDS ORDERED: INSULIN GLARGINE HUM REC ANLOG 50 UNIT SQ SCH (08:00)
--- NOTE | 2018-05-27 08:18 | ECHO ---
HEIGHT: 5 ft 0 in WEIGHT: 244 lb 11.2 oz DATE OF STUDY: 05/26/[address]: Amish Briggs MD 2-DIMENSIONAL: YES M.MODE: YES DOPPLER: YES COLOR FLOW: YES TDS: YES PORTABLE: YES DEFINITY: NO BUBBLE STUDY: NO DIAGNOSIS: SHORTNESS OF BREATH CARDIAC HISTORY: CATHERIZATION: YES SURGERY: NO PROSTHETIC VALVE: NO PACEMAKER: NO MEASUREMENTS (cm) DIASTOLIC (NORMALS) SYSTOLIC (NORMALS) IVSd 1.4 (0.6-1.2) LA Diam (1.9-4.0) LVEF 79% LVIDd 3.8 (3.5-5.7) LVIDs 2.1 (2.0-3.5) %FS 47% LVPWd 1.4 (0.6-1.2) Ao Diam 3.3 (2.0-3.7) 2 DIMENSIONAL ASSESSMENT: RIGHT ATRIUM: NORMAL LEFT ATRIUM: NORMAL RIGHT VENTRICLE: NORMAL LEFT VENTRICLE: LEFT VENTRICULAR HYPERTROPHY TRICUSPID VALVE: NORMAL MITRAL VALVE: MITRAL ANNULAR CALCIFICATION PULMONIC VALVE: NORMAL AORTIC VALVE: SCLEROSIS PERICARDIAL EFFUSION: NONE AORTIC ROOT: NORMAL LEFT VENTRICULAR WALL MOTION: NORMAL LEFT VENTRICULAR EJECTION FRACTION. DECREASED LEFT VENTRICULAR COMPLIANCE. DOPPLER/COLOR FLOW: NORMAL COMMENTS: LEFT VENTRICULAR HYPERTROPHY. NORMAL LEFT VENTRICULAR EJECTION FRACTION. DECREASED LEFT VENTRICULAR COMPLIANCE. MITRAL ANNULAR CALCIFICATION. AORTIC SCLEROSIS, NO STENOSIS. TECHNOLOGIST: Alexandra BRITO
[2018-05-27] MEDS ORDERED: LISINOPRIL 10 MG TAB PO SCH ×2 (09:00)
[2018-05-27] MEDS: FAMCICLOVIR 250 MG PO SCH ×2 (09:00→22:56)
[2018-05-27] MEDS ORDERED: D50W 25 GM/50 ML SYRINGE IV PRN (09:15)
[2018-05-27] MEDS ORDERED: GLUCAGON 1 MG/VIAL IM PRN (09:15)
[2018-05-27] MEDS: CEFTRIAXONE/SWI 1gm 1 GM/10 ML SYR IVP SCH (09:40)
[2018-05-27] MEDS: INSULIN GLARGINE 100 UNITS/ML SQ SCH (09:40)
[2018-05-27] MEDS: ENOXAPARIN 30 MG/0.3 ML SQ SCH (09:41)
[2018-05-27] MEDS: DULOXETINE 30 MG CAP PO SCH (09:42)
[2018-05-27] MEDS: FUROSEMIDE 40 MG/4 ML VIAL IV SCH ×2 (09:42→17:05)
[2018-05-27] MEDS: CLOPIDOGREL 75 MG TABLET PO SCH (09:42)
[2018-05-27] MEDS: FAMOTIDINE 20 MG TAB PO SCH (09:42)
[2018-05-27] MEDS: METOPROLOL TAR 50 MG TAB PO SCH ×2 (09:43→22:57)
[2018-05-27] MEDS: GLIMEPIRIDE 2 MG TABLET PO SCH (09:43)
[2018-05-27] MEDS: ASPIRIN 81 MG CHEWABLE TABLET PO SCH (09:44)
[2018-05-27] MEDS: METHYLPREDNISOLONE 40 MG INJ IV SCH ×2 (09:45→22:58)
[2018-05-27 10:31] LABS: Arterial Blood Carboxyhemoglob 2.1 % (0-1.5); Blood Gas Oxyhemoglobin 95.5 % (94-97); Blood O2 Saturation 98.1 % (92-98.5)
[2018-05-27] MEDS ORDERED: INSULIN -REGULAR HUMAN 50 UNIT/0.5 ML ML SQ SCH (11:30)
[2018-05-27] MEDS: INSULIN -REGULAR HUMAN 50 UNIT/0.5 ML ML SQ SCH ×2 (17:04→23:00)
--- NOTE | 2018-05-27 19:08 | PN ---
Date of Progress Note: 05/27/2018 Subjective: The patient seen and examined. Chart reviewed and case discussed with RN. The patient still having some episodes of confusion. No further hallucinations. The patient states her breathin g is better. Still requiring BiPAP. Medications: List reviewed. Physical Examination: Vital Signs: Temperature 97.5, heart rate 72, blood pressure 134/63, respirations 20, O2 96% on BiPA P, 30% FiO2. General: Awake, alert, oriented x3. Elderly female, morbidly obese, in some mild respiratory distre ss. CV: S1 and S2. Regular rate and rhythm. Peripheral pulses present. Respiratory: Diminished breath sounds. Minimal wheezing. Some crackles are heard. Gastrointestinal: Abdomen is soft, nontender, nondistended. Positive bowel sounds. Extremities: No clubbing or cyanosis. The patient has 2+ peripheral edema. Neurologic: Nonfocal. Laboratory Data: Sodium 143, potassium 4, chloride 101, CO2 of 36, BUN 24, creatinine 1.64, glucose 237, calcium 9. WBC 7, H and H 13.9 and 42.8, platelets 267, neutrophils 92%. Urine culture is pend ing. Echocardiogram shows EF of 79%, left ventricular hypertrophy and decreased left ventricular com pliance. Aortic sclerosis, no stenosis. Assessment And Plan: A 62-year-old female with: 1.Acute respiratory failure with hypoxia and hypercapnia, improved with BiPAP. Repeat ABG last nigh t showed worsening CO2. However, this morning pH and CO2 both have improved. The patient does seem to be a chronic CO2 retainer. Her bicarb is elevated at 34, showing compensation. 2.Acute chronic obstructive pulmonary disease exacerbation. Continue nebulizer treatments and IV st eroids. We will try to wean off BiPAP as tolerated. Consult Pulmonology. 3.Acute diastolic heart failure. Echocardiogram shows EF of 79%. We will continue diuretics. Corina tor I's and O's. Strict fluid restriction. Continue SOLOMON inhibitor and beta-kadie. 4.CO2 narcosis with toxic encephalopathy, improved. No further hallucination. The patient's mental status now back to baseline. 5.Essential hypertension, stable. Resume home medications. 6.Diabetes mellitus type 2, insulin requiring with hyperglycemia uncontrolled. We will adjust slidi ng scale insulin. The patient not very compliant with her diet. 7.Sleep apnea, obstructive. The patient states she has really does not use her CPAP at home as it m akes her nose very dry and causes nose bleeds. The patient instructed to call her supply company to have oxygen to bleed as well as humidifier. 8.Hypothyroidism. Continue Synthroid. 9.Coronary artery disease, [place] artery and [place] heart without angina, stable. 10.Chronic kidney disease stage 3. Creatinine is improved slightly. We will continue to monitor. Avoid NSAIDs. 11.Deep venous thrombosis prophylaxis with Lovenox. Plan: Continue diuretics. Monitor I's and O's. Pulmonology consultation. Wean of BiPAP. Likely d ischarge in next 24-48 hours depending on clinical response. SA/MODL Voice ID: [id number] Report ID: [id number]
[2018-05-27] MEDS: ROSUVASTATIN 10 MG TAB PO SCH (22:56)
[2018-05-28] MEDS: LEVOTHYROXINE SOD 0.088 MG TAB PO SCH (05:19)
[2018-05-28 06:22] LABS: Absolute Lymphocytes (CBC) 0.7 K/uL (0.7-4.9); Absolute Monocytes 0.3 K/uL (0.1-1.3); Absolute Neutrophil 15.1 K/uL (1.8-8.0); Basophils % 0.1 % (0-1.3); Hematocrit 44.3 % (36.0-45.0); Lymphocytes % 4.4 % (15.3-44.8); MPV 7.9 fL (7.6-11.3); RBC Red Blood Cell Count 4.69 M/uL (3.86-4.86)
[2018-05-28] MEDS: INSULIN -REGULAR HUMAN 50 UNIT/0.5 ML ML SQ SCH ×5 (07:30→21:28)
[2018-05-28 07:45] LABS: Blood Morphology Comment NOT SEEN (NOT SEEN); Platelet Estimate ADEQ
--- NOTE | 2018-05-28 08:23 | P.CNS ---
Date of Consult: 05/28/18 Chief Complaint: Shortness of breath History of Present Illness: Patient is 62 years of age with a history of questionable COPD sleep apnea as been noncompliant with his CPAP machine and admitted with worsening dyspnea hallucinations lower extremity edema history of coronary artery disease she has never smoked unable to use the BiPAP in the past couple of weeks causing dryness of the mouth and nose also has some lower extremity edema denies any fever chills cough sputum hemoptysis Allergies doxycycline Allergy (Severe, Verified 05/26/18 16:39) Rash sulfamethoxazole [From Bactrim] Allergy (Severe, Verified 05/26/18 16:20) Rash trimethoprim [From Bactrim] Allergy (Severe, Verified 05/26/18 16:20) Rash iodine Allergy (Mild, Verified 07/04/15 22:56) Itching red dye Allergy (Severe, Uncoded 07/04/15 22:56) Itching Home Medications: Clopidogrel Bisulfate [Plavix] 75 mg PO DAILY #0 tablet 04/03/12 Furosemide [Lasix*] 40 mg PO DAILY PRN 07/04/15 Vit D3 5,000 units PO DAILY 07/04/15 Levothyroxine [Synthroid*] 0.088 mg PO [id number] #30 tab 07/06/15 Rosuvastatin [Crestor*] 40 mg PO BEDTIME #30 tab 07/06/15 Nitroglycerin [Nitrostat] 0.4 mg SL Q5M PRN 09/07/15 Aspirin 81 mg PO DAILY 11/18/16 Metoprolol Tartrate 50 mg PO BID 11/18/16 Albuterol Sulfate [Ventolin Hfa] 2 inhaler IH Q4HP PRN 05/26/18 Duloxetine HCl 90 mg PO DAILY 05/26/18 Famciclovir [Famvir] 250 mg PO BID 05/26/18 Famotidine [Pepcid] 20 mg PO BID 05/26/18 Glimepiride 2 mg PO DAILY WITH BREAKFAST 05/26/18 Insulin Glargine,Hum.rec.anlog [Lantus Solostar] 50 unit SQ DAILY WITH BREAKFAST 05/26/18 Ipratropium/Albuterol Sulfate [Iprat-Albut 0.5-3(2.5) mg/3 ml] 3 ml IH Q4HP PRN 05/26/18 Lisinopril 10 mg PO DAILY 05/26/18 - Past Medical/Surgical History Diabetic: Yes -: hypothyroidism -: htn -: high cholesterol -: diabetes -: carpal tunnel syndrome -: trigger thumb -: heart stentsx3 -: hysterectomy -: fistula -: trigger thumb surgery - Family History Father History Unknown: Yes Mother Medical History: Heart disease - Social History Smoking Status: Former smoker Alcohol use: No CD- Drugs: No Caffeine use: No Place of Residence: Home Review of Systems General: Weakness Respiratory: Shortness of Breath Cardiovascular: Edema Physical Examination Temp Pulse Resp BP Pulse Ox 97.5 F 67 20 132/60 94 05/28/18 04:00 05/28/18 04:00 05/28/18 04:00 05/28/18 04:00 05/28/18 04:00 General: Alert, In no apparent distress, Oriented x3 Respiratory: Clear to auscultation bilaterally, Diminished Cardiovascular: Normal S1 S2, Edema (2+ edema) Gastrointestinal: Normal bowel sounds, Soft and benign Musculoskeletal: No clubbing, Swelling - Problems (1) Respiratory failure Current Visit: Yes Status: Acute Plan: Patient is 62 years of age morbidly obese admitted with worsening dyspnea hallucinations she was hypoxic hypercapnic also has history of sleep apnea noncompliant with her CPAP machine history of coronary artery disease complained of lower extremity edema patient is never smoked has chronic renal failure on Lasix so developed some hallucinations patient's echocardiogram is normal full the SOLOMON-inhibitor for now bronchodilator treatments BNP elevated normal left ventricular function possible underlying diastolic dysfunction was unlikely patient has obesity hyperventilation syndrome TSH level in February of 2018 was normal Lasix dose increased Qualifiers: Chronicity: acute on chronic
[2018-05-28] MEDS: INSULIN GLARGINE 100 UNITS/ML SQ SCH (08:45)
[2018-05-28] MEDS: FAMCICLOVIR 250 MG PO SCH ×2 (08:46→21:20)
[2018-05-28] MEDS: ENOXAPARIN 30 MG/0.3 ML SQ SCH (08:47)
[2018-05-28] MEDS: FUROSEMIDE 40 MG/4 ML VIAL IV SCH ×2 (08:48→16:56)
[2018-05-28] MEDS: DULOXETINE 30 MG CAP PO SCH (08:48)
[2018-05-28] MEDS: CLOPIDOGREL 75 MG TABLET PO SCH (08:48)
[2018-05-28] MEDS: FAMOTIDINE 20 MG TAB PO SCH (08:49)
[2018-05-28] MEDS: CEFTRIAXONE/SWI 1gm 1 GM/10 ML SYR IVP SCH (08:49)
[2018-05-28] MEDS: ASPIRIN 81 MG CHEWABLE TABLET PO SCH (08:49)
[2018-05-28] MEDS: GLIMEPIRIDE 2 MG TABLET PO SCH (08:49)
[2018-05-28] MEDS: METHYLPREDNISOLONE 40 MG INJ IV SCH ×2 (08:49→21:20)
[2018-05-28] MEDS: METOPROLOL TAR 50 MG TAB PO SCH ×2 (08:50→21:20)
[2018-05-28] MEDS: ARFORMOTEROL TARTRATE 15 MCG/2 ML VIAL.NEB NEB SCH ×2 (09:40→20:00)
[2018-05-28] MEDS: IPRATROPIUM BROM 0.5MG/2.5ML NEB SCH ×2 (14:10→20:00)
[2018-05-28] MEDS: ROSUVASTATIN 10 MG TAB PO SCH (21:20)
[2018-05-29] MEDS: IPRATROPIUM BROM 0.5MG/2.5ML NEB SCH ×3 (02:00→13:57)
[2018-05-29] MEDS: LEVOTHYROXINE SOD 0.088 MG TAB PO SCH (05:01)
--- NOTE | 2018-05-29 06:54 | DS ---
Date of Discharge: 05/28/2018 System Safety Engineer: Dr. Welsh with Pulmonology. Discharge Diagnoses: 1. Acute respiratory failure with hypercapnia and hypoxia. 2. Acute chronic obstructive pulmonary disease exacerbation. 3. Acute diastolic heart failure exacerbation. 4. Carbon dioxide narcosis, toxic encephalopathy. 5. Essential hypertension. 6. Diabetes mellitus type 2, insulin requiring with hyperglycemia. 7. Hypothyroidism. 8. Coronary artery disease, [place] artery and [place] heart, stable. 9. Chronic kidney disease stage 3. 10. Hypertensive heart disease 11. Morbid obesity 12. Obstructive sleep apnea 13. noncompliance w CPAP Hospital Course: The patient is a 62-year-old female who comes in with shortness of breath and confusion. The patient was hallucinating. She was noted to be hypercapnic, hypoxic, started on BiPAP. The patient had pCO2 of 78. Her condition improved with BiPAP. She was able to become more oriented and did not have any further hallucinations. Echocardiogram was done which showed EF of 79% and left ventricular hypertrophy. The patient did have an abnormal UA. However, urine culture showed no growth. Her kidney function remained at baseline. The patient responded well to treatment. She did have some steroid induced leukocytosis, but overall she was able to be weaned off BiPAP. Confusion resolved. Her breathing improved significantly. Patient's diastolic heart failure also improved with diuresis. The patient was counseled regarding fluid restricted diet and watching her sodium. The patient is not septic. Her repeat ABG showed improvement. She does seem to be a chronic CO2 retainer as evidenced by elevated bicarb which has been compensating. The patient's tox screen was also negative. Chest x-ray showed some volume overload on admission. Doppler sonogram was negative for DVT. The patient was then cleared for discharge from pulmonology standpoint. She was able to ambulate without difficulty. She did qualify for home O2, which was set up. The patient was then discharged home in a stable condition. Activity: As tolerated. No strenuous activity for the next few days. Diet: Low-sodium, 1500 mL fluid restriction, diabetic diet. Followup: Follow up with primary care physician in 2 to 3 days. Follow up with community center coordinator, Dr. Welsh in 2 weeks. Return to ER for worsening condition. Medications: As per medication reconciliation list. Physical Examination: General: Awake, alert, oriented x3. No acute distress. CV: S1, S2. No murmurs. Respiratory: Moving air well bilaterally. No wheezing. Gastrointestinal: Abdomen is soft, nontender, nondistended. Positive bowel sounds. Extremities: No clubbing, cyanosis. Minimal pedal edema. Neuro: Nonfocal. Total time spent discharging the patient was 41 minutes. /KENNEDY Voice ID: [id number] Report ID: [id number] [facility]
[2018-05-29] MEDS: INSULIN -REGULAR HUMAN 50 UNIT/0.5 ML ML SQ SCH ×3 (08:34→16:54)
[2018-05-29] MEDS: INSULIN GLARGINE 100 UNITS/ML SQ SCH (08:35)
[2018-05-29] MEDS: CEFTRIAXONE/SWI 1gm 1 GM/10 ML SYR IVP SCH (08:36)
[2018-05-29] MEDS: ENOXAPARIN 30 MG/0.3 ML SQ SCH (08:36)
[2018-05-29] MEDS: METHYLPREDNISOLONE 40 MG INJ IV SCH (08:36)
[2018-05-29] MEDS: FAMCICLOVIR 250 MG PO SCH (08:36)
[2018-05-29] MEDS: ASPIRIN 81 MG CHEWABLE TABLET PO SCH (08:37)
[2018-05-29] MEDS: CLOPIDOGREL 75 MG TABLET PO SCH (08:37)
[2018-05-29] MEDS: GLIMEPIRIDE 2 MG TABLET PO SCH (08:37)
[2018-05-29] MEDS: DULOXETINE 30 MG CAP PO SCH (08:38)
[2018-05-29] MEDS: FAMOTIDINE 20 MG TAB PO SCH (08:38)
[2018-05-29] MEDS: ARFORMOTEROL TARTRATE 15 MCG/2 ML VIAL.NEB NEB SCH (08:55)
[2018-05-29] MEDS: METOPROLOL TAR 50 MG TAB PO SCH (09:00)
[2018-05-29] MEDS: FUROSEMIDE 40 MG/4 ML VIAL IV SCH ×2 (09:00→16:53)
[2018-05-29 10:54] VITALS: O2SAT 94
[2018-05-29 16:19] VITALS: BP 114/61; TEMP 97.4
--- NOTE | 2018-05-29 18:34 | PN ---
Date of Progress Note: 05/29/2018 Subjective: The patient is seen and examined. Chart reviewed and case discussed with RN. The patie nt was supposed to leave yesterday, however, oxygen delivery did not take place. The patient overall is doing better. No further episodes of confusion. Breathing has improved. Medications: List reviewed. Physical Examination: Vital Signs: Temperature 97.3, heart rate 72, blood pressure 100/60, respirations 23, O2 of 99% on 2 L via nasal cannula. General: Awake, alert, oriented x3. Not in any acute distress. A morbidly obese female. CV: S1 and S2. Peripheral pulses present. Respiratory: Moving air well bilaterally. No wheezing. Gastrointestinal: Abdomen is soft, nontender, nondistended. Positive bowel sounds. Extremities: No clubbing or cyanosis. The patient does have edema. Neurologic: Nonfocal. Laboratory Data: Blood glucose levels ranging from 253 to 152. Urine culture, no growth. Assessment: A 62-year-old female with: 1.Acute respiratory failure with hypercapnia and hypoxia, resolving. 2.Acute chronic obstructive pulmonary disease exacerbation, improved. 3.Acute diastolic heart failure exacerbation. 4.CO2 narcosis, toxic encephalopathy, resolved. 5.Essential hypertension, stable. 6.Diabetes mellitus type 2, insulin requiring, with hyperglycemia. 7.Hypothyroidism, stable. 8.Coronary artery disease, [place] artery and [place] heart, without angina, stable. 9.Chronic kidney disease stage 3, stable. Creatinine at baseline. Plan: Discharge the patient once oxygen is delivered. /KENNEDY Voice ID: [id number] Report ID: [id number]
== END 2018-05-29 18:20 | disposition home or self-care (01) | DRG 291 ==
LOC: ER 11:17 → ERHOLD 14:55 → 2ND 15:55
PROVIDERS: ADMIT Family Medicine; ATTEND Family Medicine
PROC: 5A09457 Assistance with Respiratory Ventilation, 24-96 Consecutive Hours, Continuous Positive Airway Pressure (ICD-10-PCS; principal; 2018-05-26)
DX: I13.0 Hypertensive heart and chronic kidney disease with heart failure and stage 1 through stage 4 chronic kidney disease, or unspecified chronic kidney disease (principal); I50.33 Acute on chronic diastolic (congestive) heart failure; G92 Toxic encephalopathy; J96.22 Acute and chronic respiratory failure with hypercapnia; J96.21 Acute and chronic respiratory failure with hypoxia; J44.1 Chronic obstructive pulmonary disease with (acute) exacerbation; N39.0 Urinary tract infection, site not specified; E66.2 Morbid (severe) obesity with alveolar hypoventilation; Z68.42 Body mass index [BMI] 45.0-49.9, adult; Z91.19 Patient's noncompliance with other medical treatment and regimen; I25.10 Atherosclerotic heart disease of native coronary artery without angina pectoris; Z95.5 Presence of coronary angioplasty implant and graft; N18.3 Chronic kidney disease, stage 3 (moderate); E11.22 Type 2 diabetes mellitus with diabetic chronic kidney disease; E11.65 Type 2 diabetes mellitus with hyperglycemia; Z79.4 Long term (current) use of insulin; E03.9 Hypothyroidism, unspecified; R60.0 Localized edema; Z88.2 Allergy status to sulfonamides; Z88.8 Allergy status to other drugs, medicaments and biological substances; Z91.048 Other nonmedicinal substance allergy status; Z87.891 Personal history of nicotine dependence; E78.5 Hyperlipidemia, unspecified; D72.828 Other elevated white blood cell count
CPT/HCPCS: 36415; 71045; 80048; 80076; 80307; 80320; 80329; 81003; 81015; 81025; 82805; 82962; 83735; 83880; 84484; 85025; 85610; 85730; 87086; 87088; 93005; 93306; 93970; 94660; 94760; 96374; 96375; 99285; J0696; J1650; J1940; J2920; J2930; J7605

== ENCOUNTER 2019-02-01 23:48 | Emergency (ER) | payer BC, SELFPAY ==
[2019-02-02] MEDS ORDERED: IPRATROPIUM BROM 0.5MG/2.5ML ONE ×2 (00:07→01:45)
[2019-02-02] MEDS ORDERED: ALBUTEROL 2.5 MG/3 ML NEB SOL ONE ×2 (00:07→01:45)
[2019-02-02] MEDS ORDERED: METHYLPREDNISOLONE 125 MG INJ ONE (00:13)
[2019-02-02 00:17] LABS: Absolute Lymphocytes (CBC) 0.7 K/uL (0.7-4.9); Basophils % 0.3 % (0-1.3); Hematocrit 32.8 % (36.0-45.0); Lymphocytes % 10.4 % (15.3-44.8); MPV 7.4 fL (7.6-11.3); RBC Red Blood Cell Count 3.34 M/uL (3.86-4.86)
[2019-02-02 00:19] LABS: Protime INR 1.03
[2019-02-02 01:04] LABS: ALT/SGPT 17 U/L (12-78); AST/SGOT 11 U/L (15-37); Albumin 3.3 g/dL (3.4-5.0); Alkaline Phosphatase 60 U/L (45-117); BUN Blood Urea Nitrogen 26 mg/dL (7-18); Bilirubin Direct 0.1 mg/dL (0-0.2); Bilirubin Total 0.5 mg/dL (0.2-1.0); Glucose Level 187 mg/dL (74-106); Magnesium 2.2 mg/dL (1.8-2.4); NT PRO-BNP 659 pg/mL (<125); Potassium 4.5 mmol/L (3.5-5.1); Protein, Total 7.8 g/dL (6.4-8.2); Sodium Level 141 mmol/L (136-145); Troponin (Emerg Dept Use Only) < 0.02 ng/mL (0.0-0.045)
[2019-02-02 01:06] LABS: Bicarbonate 41 mmol/L (21-32)
--- NOTE | 2019-02-02 02:37 | ER ---
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 Transition of care: patient was not received from another setting of care. Onset of symptoms is unknown. Risk Assessment: Do you want to hurt yourself or someone else? Patient reports no desire to harm self or others. Initial Sepsis Screen: Does the patient meet any 2 criteria? No. Patient's initial sepsis screen is negative. Does the patient have a suspected source of infection? No. Patient's initial sepsis screen is negative. Note pt uses 3L oxygen via NC at home. Care prior to arrival: None. 23:50 Method Of Arrival: EMS: [facility] ak1 23:50 Acuity: ERNA 3 ak1 Triage Assessment: 23:53 General: Appears in no apparent distress. Behavior is calm, cooperative. Pain: Denies ak1 pain. EENT: No signs and/or symptoms were reported regarding the EENT system. Neuro: Level of Consciousness is awake, alert, obeys commands, Oriented to person, place, time, situation, Appropriate for age Moves all extremities. Cardiovascular: No deficits noted. Respiratory: Reports shortness of breath at rest on exertion since 1 week PROOF SORTER. pt uses 3L oxygen via NC Onset: The symptoms/episode began/occurred 1 week intermittent PROOF SORTER, the patient has mild shortness of breath. GI: No signs and/or symptoms were reported involving the gastrointestinal system. : No signs and/or symptoms were reported regarding the genitourinary system. Derm: No signs and/or symptoms reported regarding the dermatologic system. Musculoskeletal: No signs and/or symptoms reported regarding the musculoskeletal system. Historical: - Allergies: 23:53 Bactrim; ak1 23:53 Iodine; ak1 23:53 TRIMETHOPRIM; ak1 23:53 Doxycycline; ak1 - Home Meds: 23:53 aspirin 81 mg Oral TbEC 1 tab once daily [Active]; Crestor 40 mg Oral tab 1 tab once ak1 daily [Active]; furosemide 40 mg Oral tab 1 tab once daily [Active]; levothyroxine 75 mcg tab 1 tab once daily [Active]; Nitrostat 0.4 mg SL subl 1 tab every 5 minutes [Active]; Plavix 75 mg Oral tab 1 tab once daily [Active]; - PMHx: 23:53 COPD; Diabetes - IDDM; Dialysis; has been off dialysis for 2 years; Hypertension; ak1 Myocardial infarction; Renal Disease; Hypothyroidism; - PSHx: 23:53 Heart stents; dialysis shunt to left arm; ak1 - Immunization history:: Adult Immunizations unknown. - Social history:: Smoking status: Patient/guardian denies using tobacco, pt smokes at home. - Ebola Screening: : No symptoms or risks identified at this time. Screenin/29 01:37 Abuse screen: Denies threats or abuse. Denies injuries from another. Nutritional ak1 screening: No deficits noted. Tuberculosis screening: No symptoms or risk factors identified. Fall Risk None identified. Assessment: 01:31 Reassessment: Patient appears in no apparent distress at this time. Patient and/or ak1 family updated on plan of care and expected duration. Pain level reassessed. pt resting with eyes closed. Patient states symptoms have improved. 01:38 Cardiovascular: Rhythm is regular. Respiratory: Airway is patent Respiratory effort is ak1 labored, Respiratory pattern is regular. 02:15 Reassessment: Patient appears in no apparent distress at this time. No changes from ak1 previously documented assessment. Patient and/or family updated on plan of care and expected duration. Pain level reassessed. pt stated her oxygen tank was left in the EMS truck. ER desk tech attempted to contacted [facility] X3 with no answer, pt informed of attempt to contact EMS to see about her personal oxygen tank. 02:55 Reassessment: [facility] [employer] contacted to contact [facility] for pt personal oxygen ak1 tank. shuttle preparation supervisor approved pt and a taxi ride home. pt stated she has more oxygen at home and feels well enough to ride home with no oxygen. Vital Signs: 02/01 23:49 BP 164 / 91; Pulse 77; Resp 24; Temp 97.8; Pulse Ox 99% on 4 lpm NC; Weight 136.08 kg ak1 (R); Height 5 ft. 0 in. (152.40 cm) (R); Pain 0/10; 10/29 01:31 BP 131 / 70; Pulse 74; Resp 24; Temp 97.8; Pulse Ox 98% on 4 lpm NC; ak1 02:57 BP 142 / 84; Pulse 73; Resp 22; Pulse Ox 100% on 4 lpm NC; ak1 02/01 23:49 Body Mass Index 58.59 (136.08 kg, 152.40 cm) ak1 ED Course: 02/01 23:49 Patient arrived in ED. ak1 23:49 Arm band placed on Patient placed in an exam room, on a stretcher, on oxygen, on ak1 athletic monitor, on pulse oximetry, Patient notified of wait time. EKG completed in triage. Results shown to MD. 23:50 Triage completed. ak1 23:56 Patient has correct armband on for positive identification. Placed in gown. Bed in low ak1 position. Side rails up X2. campus monitor on. Pulse ox on. NIBP on. 23:56 Oxygen administration via nasal cannula \T\ 4L/min. ak1 23:56 EKG done, by ED staff. ak1 02/02 00:00 Naun Zapata MD is Attending Physician. tw4 00:09 Cecilia Saavedra, KALYAN is Primary Nurse. ak1 01:06 XRAY Chest (1 view) In Process Unspecified. EDMS 01:47 No provider procedures requiring assistance completed. Patient did not have IV access ak1 during this emergency room visit. Administered Medications: 00:10 Drug: DuoNeb (3:1) (2.5 mg - 0.5 mg) 3 ml Route: Nebulizer; ak1 01:11 Follow up: Response: No adverse reaction ak1 00:10 CANCELLED (Other Intervention Used): SOLU-Medrol 125 mg IVP once ak1 00:20 Drug: SOLU-Medrol 125 mg Route: IM; Site: left gluteus; ak1 01:11 Follow up: Response: No adverse reaction ak1 01:47 Drug: Albuterol - atroVENT (3:1) (2.5 mg - 0.5 mg) 3 ml Route: Nebulizer; ak1 02:16 Follow up: Response: No adverse reaction ak1 Outcome: 01:47 Condition: improved ak1 02:37 Discharge ordered by . tw4 02:57 Discharged to home via wheelchair, with family, taxi contacted for transportation. ak1 02:57 Discharge instructions given to patient, Instructed on discharge instructions, follow up and referral plans. medication usage, Demonstrated understanding of instructions, follow-up care, medications, Prescriptions given X 5 - including neb tx machine 02:58 Patient left the ED. ak1 Signatures: Dispatcher [employer] EDMS Cecilia Saavedra RN RN ak1 Naun Zapata MD MD tw4 Corrections: (The following items were deleted from the chart) 01:37 01:31 Pulse 74bpm; Resp 24bpm; Pulse Ox 98% 4 lpm Nasal Cannula; Temp 97.8F; ak1 ak1
[2019-02-02 03:09] VITALS: TEMP 97.8
[2019-02-02 03:20] VITALS: BP 142/84; O2SAT 100
--- NOTE | 2019-02-02 07:36 | RAD REPORT ---
EXAM DESCRIPTION: RAD - Chest Single View - 02/02/2019 1:06 am CLINICAL HISTORY: Weakness, shortness of breath COMPARISON: May 26 TECHNIQUE: AP portable chest image was obtained 0025 hours . FINDINGS: Exam is extremely limited. Patient has a very large body habitus. Combined with portable t echnique and shallow inspiration, lung griggs are quite small and limited in evaluation. A focal consolidation is not identifiable. There is prominent lung parenchyma and vasculature. Heart size is upper normal. No measurable pleural effusion and no pneumothorax. No acute bony abnormality s een. No acute aortic findings suspected. IMPRESSION: Very limited portable chest suspicious for failure/ volume overload.
--- NOTE | 2019-02-02 10:17 | EKG ---
Test Date: 2019-02-01 Test Time: 23:47:37 Retail Sales Specialist: MEASUREMENT RESULTS: Intervals: Rate: 81 NM: 166 QRSD: 82 QT: 386 QTc: 448 [place]: P: 41 NM: 166 QRS: 74 T: 52 INTERPRETIVE STATEMENTS: Normal sinus rhythm Normal ECG Compared to ECG 05/26/2018 11:46:17 Sinus arrhythmia no longer present Ventricular premature complex(es) no longer present Right-axis deviation no longer present Myocardial infarct finding no longer present Electronically Signed On 02-02-19 10:16:00 CDT by Gabriel Atkinson
--- NOTE | 2019-02-03 03:00 | EDPHYS ---
Physician Documentation [facility] Name: Lili Hernandez Age: 63 yrs Sex: Female : 1955 Arrival Date: 02/01/2019 Time: 23:49 Bed 6 Private MD: ED Physician Naun Zapata HPI: 02/02 05:40 This 63 yrs old Female presents to ER via EMS with complaints of Shortness Of tw4 Breath. 05:40 The patient has shortness of breath at rest. Onset: The symptoms/episode began/occurred tw4 just prior to arrival, today. Duration: The symptoms are chronic, are continuous, and are unchanged since they started. The patient's shortness of breath is aggravated by exertion. Associated signs and symptoms: The patient has no apparent associated signs or symptoms. Severity of symptoms: At their worst the symptoms were moderate in the emergency department the symptoms are unchanged. The patient has experienced similar episodes in the past, a few times. Historical: - Allergies: 02/01 23:53 Bactrim; ak1 23:53 Iodine; ak1 23:53 TRIMETHOPRIM; ak1 23:53 Doxycycline; ak1 - Home Meds: 23:53 aspirin 81 mg Oral TbEC 1 tab once daily [Active]; Crestor 40 mg Oral tab 1 tab once ak1 daily [Active]; furosemide 40 mg Oral tab 1 tab once daily [Active]; levothyroxine 75 mcg tab 1 tab once daily [Active]; Nitrostat 0.4 mg SL subl 1 tab every 5 minutes [Active]; Plavix 75 mg Oral tab 1 tab once daily [Active]; - PMHx: 23:53 COPD; Diabetes - IDDM; Dialysis; has been off dialysis for 2 years; Hypertension; ak1 Myocardial infarction; Renal Disease; Hypothyroidism; - PSHx: 23:53 Heart stents; dialysis shunt to left arm; ak1 - Immunization history:: Adult Immunizations unknown. - Social history:: Smoking status: Patient/guardian denies using tobacco, pt smokes at home. - Ebola Screening: : No symptoms or risks identified at this time. ROS: 02/02 05:40 Constitutional: Negative for fever, chills, and weight loss, Eyes: Negative for injury, tw4 pain, redness, and discharge, Cardiovascular: Negative for chest pain, palpitations, and edema, Abdomen/GI: Negative for abdominal pain, nausea, vomiting, diarrhea, and constipation, Back: Negative for injury and pain, MS/Extremity: Negative for injury and deformity, Skin: Negative for injury, rash, and discoloration, Neuro: Negative for headache, weakness, numbness, tingling, and seizure. Respiratory: Positive for cough, shortness of breath. Exam: 05:40 Constitutional: This is a well developed, well nourished patient who is awake, alert, tw4 and in no acute distress. Head/Face: Normocephalic, atraumatic. Chest/axilla: Normal chest wall appearance and motion. Nontender with no deformity. No lesions are appreciated. Cardiovascular: Regular rate and rhythm with a normal S1 and S2. No gallops, murmurs, or rubs. Normal PMI, no JVD. No pulse deficits. Abdomen/GI: Soft, non-tender, with normal bowel sounds. No distension or tympany. No guarding or rebound. No evidence of tenderness throughout. Back: No spinal tenderness. No costovertebral tenderness. Full range of motion. MS/ Extremity: Pulses equal, no cyanosis. Neurovascular intact. Full, normal range of motion. Neuro: Awake and alert, GCS 15, oriented to person, place, time, and situation. Cranial nerves II-XII grossly intact. Motor strength 5/5 in all extremities. Sensory grossly intact. Cerebellar exam normal. Normal gait. 05:40 Respiratory: moderate respiratory distress is noted, Respirations: normal, Breath sounds: wheezing: Vital Signs: 02/01 23:49 BP 164 / 91; Pulse 77; Resp 24; Temp 97.8; Pulse Ox 99% on 4 lpm NC; Weight 136.08 kg ak1 (R); Height 5 ft. 0 in. (152.40 cm) (R); Pain 0/10; 02/02 01:31 BP 131 / 70; Pulse 74; Resp 24; Temp 97.8; Pulse Ox 98% on 4 lpm NC; ak1 02:57 BP 142 / 84; Pulse 73; Resp 22; Pulse Ox 100% on 4 lpm NC; ak1 02/01 23:49 Body Mass Index 58.59 (136.08 kg, 152.40 cm) ak MDM: 00:00 Patient medically screened. tw4 02/01 23:55 Order name: Basic Metabolic Panel ak1 02/01 23:55 Order name: CBC with Diff ak1 02/01 23:55 Order name: LFT's ak1 02/01 23:55 Order name: Magnesium ak1 02/01 23:55 Order name: NT PRO-BNP ak1 02/01 23:55 Order name: PT-INR ak1 02/01 23:55 Order name: Troponin (emerg Dept Use Only) ak1 02/01 23:55 Order name: XRAY Chest (1 view) ak1 02/01 23:55 Order name: EKG; Complete Time: 23:56 ak1 02/01 23:55 Order name: Cardiac monitoring; Complete Time: 23:55 ak1 02/01 23:55 Order name: EKG - Nurse/Tech; Complete Time: 23:55 ak1 02/01 23:55 Order name: Labs collected and sent; Complete Time: 00:10 ak1 02/01 23:55 Order name: O2 Per Protocol; Complete Time: 23:55 in1 02/01 23:55 Order name: O2 Sat Monitoring; Complete Time: 23:55 [facility] EC:16 Rate is 81 beats/min. Rhythm is regular. QRS [place] is Normal. QRS interval is normal. QT tw4 interval is normal. No Q waves. T waves are Normal. No ST changes noted. Clinical impression: Normal ECG. Interpreted by me. Reviewed by me. Administered Medications: 00:10 Drug: DuoNeb (3:1) (2.5 mg - 0.5 mg) 3 ml Route: Nebulizer; ak1 01:11 Follow up: Response: No adverse reaction ak1 00:10 CANCELLED (Other Intervention Used): SOLU-Medrol 125 mg IVP once ak1 00:20 Drug: SOLU-Medrol 125 mg Route: IM; Site: left gluteus; ak1 01:11 Follow up: Response: No adverse reaction ak1 01:47 Drug: Albuterol - atroVENT (3:1) (2.5 mg - 0.5 mg) 3 ml Route: Nebulizer; ak1 02:16 Follow up: Response: No adverse reaction ak1 Disposition: 02/02/19 02:37 Discharged to Home. Impression: Chronic obstructive pulmonary disease with (acute) exacerbation. - Condition is Stable. - Discharge Instructions: Chronic Obstructive Pulmonary Disease, How to Use an Inhaler, Chronic Obstructive Pulmonary Disease Exacerbation. - Prescriptions for Combivent Respimat 20- 100 mcg/actuation Inhalation mist - inhale 1 puff by INHALATION route 4 times per day not to exceed 6 puffs in 24hrs; 1 Cartridge. Albuterol Sulfate 2.5 mg /3 mL (0.083 %) Inhalation Solution for Nebulization - inhale 1 unit by NEBULIZATION route every 8 hours As needed; 1 box. Medrol (Shmuel) 4 mg Oral Tablets, Dose Pack - take 1 tablet by ORAL route as directed - follow package instructions; 1 packet. Albuterol Sulfate 90 mcg/actuation - inhale 1-2 puff by INHALATION route every 4-6 hours; 1 Inhaler. - Medication Reconciliation Form, Thank You Letter, Antibiotic Education, Prescription Opioid Use form. - Follow up: Private Physician; When: Upon discharge from the Emergency Department; Reason: Recheck today's complaints, Continuance of care. - Problem is new. - Symptoms have improved. Signatures: Dispatcher [employer] Cecilia Fraga RN RN ak1 Naun Zapata MD MD tw4 Corrections: (The following items were deleted from the chart) 00:10 00:05 SOLU-Medrol 125 mg IVP once ordered. tw4 ak1 02:58 02:37 02/02/2019 02:37 Discharged to Home. Impression: Chronic obstructive pulmonary ak1 disease with (acute) exacerbation. Condition is Stable. Forms are Medication Reconciliation Form, Thank You Letter, Antibiotic Education, Prescription Opioid Use. Follow up: Private Physician; When: Upon discharge from the Emergency Department; Reason: Recheck today's complaints, Continuance of care. Problem is new. Symptoms have improved. tw4
== END 2019-02-02 02:58 | disposition home or self-care (01) ==
LOC: ER 23:48
DX: J44.1 Chronic obstructive pulmonary disease with (acute) exacerbation (principal); Z88.1 Allergy status to other antibiotic agents; Z91.09 Other allergy status, other than to drugs and biological substances; Z88.3 Allergy status to other anti-infective agents; J44.9 Chronic obstructive pulmonary disease, unspecified; E11.9 Type 2 diabetes mellitus without complications; Z79.4 Long term (current) use of insulin; E03.9 Hypothyroidism, unspecified; N28.9 Disorder of kidney and ureter, unspecified; Z99.2 Dependence on renal dialysis; I25.2 Old myocardial infarction
CPT/HCPCS: 36415; 71045; 80048; 80076; 83735; 83880; 84484; 85025; 85610; 93005; 94640; 96372; 99285; J2930

== ENCOUNTER 2019-02-05 09:06 | Emergency (ER) | payer BC, SELFPAY ==
[2019-02-05] MEDS ORDERED: PROPOFOL 1,000 MG/100 ML VIAL IV ONE (09:16)
[2019-02-05] MEDS ORDERED: RSI MEDICATION KIT IV ONE (09:16)
[2019-02-05 09:46] LABS: Protime INR 1.08
[2019-02-05] MEDS ORDERED: ALBUTEROL 2.5 MG/3 ML NEB SOL ONE (09:49)
[2019-02-05] MEDS ORDERED: FUROSEMIDE 100 MG/10 ML VIAL IV ONE (09:50)
[2019-02-05 09:53] LABS: Basophils % 0.4 % (0-1.3); Hematocrit 35.7 % (36.0-45.0); Lymphocytes % 19.9 % (15.3-44.8); MPV 7.7 fL (7.6-11.3); RBC Red Blood Cell Count 3.59 M/uL (3.86-4.86)
[2019-02-05 10:12] LABS: ALT/SGPT 16 U/L (12-78); AST/SGOT 7 U/L (15-37); Albumin 3.4 g/dL (3.4-5.0); Alkaline Phosphatase 61 U/L (45-117); BUN Blood Urea Nitrogen 30 mg/dL (7-18); Bicarbonate 39 mmol/L (21-32); Bilirubin Direct 0.2 mg/dL (0-0.2); Bilirubin Total 0.9 mg/dL (0.2-1.0); Glucose Level 173 mg/dL (74-106); Magnesium 2.7 mg/dL (1.8-2.4); NT PRO-BNP 1236 pg/mL (<125); Potassium 5.4 mmol/L (3.5-5.1); Protein, Total 8.1 g/dL (6.4-8.2); Sodium Level 141 mmol/L (136-145); Troponin (Emerg Dept Use Only) < 0.02 ng/mL (0.0-0.045)
[2019-02-05 10:21] LABS: Urine Blood 2+ (NEG); Urine Glucose NEGATIVE (NEG); Urine Protein 3+ (NEG); Urine Specific Gravity >1.030 (1.005-1.030); Urine pH 5.5 (5.0-7.0)
--- NOTE | 2019-02-05 10:21 | RAD REPORT ---
EXAM DESCRIPTION: RAD - Chest Single View - 02/05/2019 9:56 am CLINICAL HISTORY: SOB Chest pain. COMPARISON: Chest Single View dated 02/02/2019; Chest Single View dated 05/26/2018; Chest Pa And Lat (2 Views) dated 04/16/2018; Chest Pa And Lat (2 Views) dated 03/10/2017 FINDINGS: Portable technique limits examination quality. Moderate bilateral pulmonary opacities are present which may represent pulmonary edema or pneumonia. The heart is mildly enlarged in size. Tip of the ET tube is above mary. Enteric tube coils in the s tomach.
--- NOTE | 2019-02-05 10:52 | RAD REPORT ---
EXAM DESCRIPTION: RAD - Chest Single View - 02/05/2019 10:42 am CLINICAL HISTORY: IJ placement Chest pain. COMPARISON: Chest Single View dated 02/05/2019; Chest Single View dated 02/02/2019; Chest Single View dated 05/26/2018; Chest Pa And Lat (2 Views) dated 04/16/2018 FINDINGS: Portable technique limits examination quality. Left-sided venous catheter has been placed with tip in the SVC. No pneumothorax. Extensive bilateral pulmonary opacities again noted, unchanged. The heart is mildly enlarged. IMPRESSION: No postprocedure pneumothorax.
[2019-02-05] MEDS ORDERED: SUCCINYLCHOLINE 20 MG/ML (10 ML) IV ONE (11:00)
[2019-02-05] MEDS ORDERED: ETOMIDATE 20 MG/10 ML VIAL IV ONE (11:00)
[2019-02-05] MEDS ORDERED: WATER FOR INJ,STERILE 10 ML ONE (11:00)
[2019-02-05] MEDS ORDERED: VECURONIUM 10 MG/VIAL IV ONE (11:00)
--- NOTE | 2019-02-05 11:01 | EKG ---
Test Date: 2019-02-05 Test Time: 09:46:49 Lab Courier: CHEVY MEASUREMENT RESULTS: Intervals: Rate: 65 [place]: 156 QRSD: 76 QT: 420 QTc: 436 [place]: P: 40 [place]: 156 QRS: 72 T: 76 INTERPRETIVE STATEMENTS: Normal sinus rhythm Early repolarization Normal ECG Compared to ECG 02/01/2019 23:47:37 Early repolarization now present Electronically Signed On 02-05-19 11:00:30 CDT by Darron Champagne
[2019-02-05] MEDS ORDERED: NOREPINEPHRINE 4mg/D5W 250mL 4 MG/250 ML BAG IV ONE (11:36)
[2019-02-05] MEDS ORDERED: CEFEPIME 1 GM/100 ML BAG IV ONE (11:36)
[2019-02-05] MEDS ORDERED: CEFEPIME/SWI 1gm 10 ML IV ONE (11:45)
[2019-02-05] MEDS ORDERED: VANCOMYCIN/NS 1 gm 1 GM/250 ML BAG IV ONE (11:45)
--- NOTE | 2019-02-05 11:53 | EDPHYS ---
Physician Documentation [facility] Name: Lili Hernandez Age: 63 yrs Sex: Female : 1955 Arrival Date: 02/05/2019 Time: 09:07 Bed 4 Private MD: ED Physician Agapito Thomson HPI: 02/05 11:35 This 63 yrs old Female presents to ER via Wheelchair with complaints of jr8 Breathing Difficulty. 11:35 The patient has shortness of breath at rest. Onset: The symptoms/episode began/occurred jr8 acutely, today. Duration: The symptoms are continuous. The patient's shortness of breath is aggravated by light activity, supine position, talking, walking, is alleviated by nothing. Associated signs and symptoms: The patient has no apparent associated signs or symptoms. Severity of symptoms: At their worst the symptoms were severe. It is unknown whether or not the patient has had similar symptoms in the past. The patient has been recently been admitted at [facility]. Patient came in POV in severe respiratory distress. Immediately brought back to trauma room and was bagged and intubated. of patient stated that she has bad COPD and heart failure. Historical: - Allergies: 09:36 Bactrim; hb 09:36 Doxycycline; hb 09:36 Iodine; hb 09:36 TRIMETHOPRIM; hb - Home Meds: 09:36 aspirin 81 mg Oral TbEC 1 tab once daily [Active]; Crestor 40 mg Oral tab 1 tab once hb daily [Active]; furosemide 40 mg Oral tab 1 tab once daily [Active]; levothyroxine 75 mcg tab 1 tab once daily [Active]; Nitrostat 0.4 mg SL subl 1 tab every 5 minutes [Active]; Plavix 75 mg Oral tab 1 tab once daily [Active]; - PMHx: 09:36 COPD; Diabetes - IDDM; Dialysis; has been off dialysis for 2 years; Hypertension; hb Hypothyroidism; Myocardial infarction; Renal Disease; - PSHx: 09:36 Heart stents; dialysis shunt to left arm; hb - Immunization history:: Adult Immunizations unknown. - Social history:: Smoking status: unknown. - Ebola Screening: : Patient negative for fever greater than or equal to 101.5 degrees Fahrenheit, and additional compatible Ebola Virus Disease symptoms Patient denies exposure to infectious person Patient denies travel to an Ebola-affected area in the 21 days before illness onset No symptoms or risks identified at this time. ROS: 11:35 Unable to obtain ROS due to patient distress. jr8 Exam: 11:35 Eyes: Pupils equal round and reactive to light, extra-ocular motions intact. Lids and jr8 lashes normal. Conjunctiva and sclera are non-icteric and not injected. Cornea within normal limits. Periorbital areas with no swelling, redness, or edema. ENT: Nares patent. No nasal discharge, no septal abnormalities noted. Tympanic membranes are normal and external auditory canals are clear. Oropharynx with no redness, swelling, or masses, exudates, or evidence of obstruction, uvula midline. Mucous membranes moist. Abdomen/GI: Soft, non-tender, with normal bowel sounds. No distension or tympany. No guarding or rebound. No evidence of tenderness throughout. MS/ Extremity: Pulses equal, no cyanosis. Neurovascular intact. Full, normal range of motion. Neuro: Awake and alert, GCS 14, oriented to person, place. Cranial nerves II-XII grossly intact. Motor strength 5/5 in all extremities. Sensory grossly intact. 11:35 Cardiovascular: Rate: normal, Rhythm: regular, Pulses: Pulses are 2+ in right radial artery and left radial artery. Heart sounds: normal, Edema: 3+ edema to level of left midcalf, left ankle, left foot, right midcalf, right ankle and right foot, JVD: is not appreciated. 11:35 Respiratory: severe repiratory distress is noted, Respirations: nasal flaring, shallow respirations, tachypnea, Breath sounds: rales, that are moderate, are located in both bases, decreased breath sounds, that are moderate, are scattered. Vital Signs: 09:10 Pulse Ox 24% on R/A; jl7 09:15 Temp 97.7; sg 09:25 BP 151 / 73; Pulse 77; Resp 23; Pulse Ox 100% on ETT ambu; jl7 10:30 BP 103 / 67; Pulse 66; Resp 18 A; Pulse Ox 100% on ETT vent; sg 11:00 BP 93 / 64; Pulse 65 MON; Resp 18 A; Pulse Ox 100% on ETT vent; sg 11:03 Weight 140.61 kg; sg 11:35 BP 84 / 65; Pulse 63 MON; Resp 18 A; Pulse Ox 100% on ETT vent; sg 11:03 per pt sg Ventilator: 09:53 Fi02: 50%; Rate: 18min; T.V.: 500ml; Peep: 5cm; ET tube: 7 mm (Oral); jl7 Procedures: 11:35 Intubation: Ventilated with 100% NRB prior to procedure. Intubated orally using # 4 jr8 Don blade with 7.0 mm ETT. was successful on first attempt. Ventilated with Ambu bag. ventilator. Tube secured with ETT shetty at center of mouth measured 21 cm at teeth. Placement verified by CXR, CO2 detector with (+) color change, auscultating bilateral breath sounds, O2 saturation after procedure was 100 %. Patient tolerated well. Central Line: the site was prepped with Betadine, in sterile fashion, a triple lumen catheter was inserted, in the left internal jugular vein, in 1 attempts. placement was verified, by CXR, by blood return, the site was dressed with 4X4s, Tegaderm, foam tape, using sterile technique, the patient tolerated the procedure, well. MDM: 09:29 Patient medically screened. jr8 11:35 Data reviewed: vital signs, nurses notes, lab test result(s), EKG, radiologic studies, jr8 plain films. Data interpreted: Pulse oximetry: on room air is 32 %. Interpretation: hypoxia. Plan: will plan to intubate. Counseling: I had a detailed discussion with the patient and/or guardian regarding: the historical points, exam findings, and any diagnostic results supporting the discharge/admit diagnosis, lab results, radiology results, the need to transfer to another facility, for higher level of care. ED course: No ICU at our facility at this time due to capacity. Will transfer out for higher level of care . 11:50 ED course: Consulted Dr. Riojas with [facility] ICU. Accepted patient . jr8 12:17 ED course: I had Nursing staff repeat EKG because first one had suspicious inferior jr8 changes that had reciprocal T wave inversion in lateral leads but sloping of the ST-Segment consistent with early repolarization. Second EKG now with more horizontal ST elevation consistent with evolving acute STEMI. Patient upgraded to [facility] and [facility] notified . 02/05 09:29 Order name: Basic Metabolic Panel; Complete Time: 10:24 ms 02/05 09:29 Order name: CBC with Diff; Complete Time: 10:24 ms 02/05 09:29 Order name: LFT's; Complete Time: 10:24 ms 02/05 09:29 Order name: Magnesium; Complete Time: 10:24 ms 02/05 09:29 Order name: NT PRO-BNP; Complete Time: 10:24 ms 02/05 09:29 Order name: PT-INR; Complete Time: 10:24 ms 02/05 09:29 Order name: Troponin (emerg Dept Use Only); Complete Time: 10:24 ms 02/05 09:29 Order name: XRAY Chest (1 view); Complete Time: 10:24 ms 02/05 10:00 Order name: Urine Dipstick--Ancillary (enter results); Complete Time: 10:24 ms 02/05 10:26 Order name: Chest Single View XRAY; Complete Time: 11:33 hb 02/05 10:27 Order name: Lactate; Complete Time: 11:33 em1 02/05 10:27 Order name: Blood Culture Adult (2) em1 02/05 11:47 Order name: ABG; Complete Time: 12:43 hb 02/05 09:29 Order name: EKG; Complete Time: 09:29 ms 02/05 09:29 Order name: Cardiac monitoring; Complete Time: 09:51 ms 02/05 09:29 Order name: EKG - Nurse/Tech; Complete Time: 09:51 ms 02/05 09:29 Order name: IV Saline Lock; Complete Time: 09:52 ms 02/05 09:29 Order name: Labs collected and sent; Complete Time: 09:51 ms 02/05 09:29 Order name: O2 Per Protocol; Complete Time: 09:51 ms 02/05 09:29 Order name: O2 Sat Monitoring; Complete Time: 09:51 ms 02/05 09:42 Order name: NG Tube; Complete Time: 09:47 jr8 Administered Medications: Discontinued: vancoMYCIN 1 grams IVPB once over 2 hrs 09:24 Drug: Etomidate 20 mg Route: IVP; Site: left antecubital; jl7 09:24 Drug: Succinylcholine 100 mg Route: IVP; Site: left antecubital; jl7 09:25 Drug: Propofol 5 mcg/kg/min Route: IV; Rate: calculated rate; Site: left antecubital; sg 11:32 Follow up: Response: No adverse reaction; IV SiteChange: left jugular; IV SiteChange sg Reason: Infiltration; instructed to move Propofol to central line 09:38 Drug: VecuroNIUM 10 mg Route: IVP; Site: left antecubital; jl7 10:10 Drug: Lasix 80 mg Route: IVP; Site: left antecubital; sg 10:10 Drug: Albuterol 2.5 mg Route: Inhalation; sg 11:40 Drug: Cefepime 1 grams Route: IVPB; Rate: 200 ml/hr; Infused Over: 30 mins; Site: left sg jugular; 12:25 Follow up: Response: No adverse reaction; IV Status: Completed infusion sg 11:42 Drug: Levophed (4 mg/250 mL D5W 4 mcg/min Route: IV; Rate: calculated rate; Site: left sg jugular; 12:07 Drug: vancoMYCIN 1 grams Route: IVPB; Infused Over: 2 hrs; Site: left jugular; sg 12:20 Drug: Tenecteplase 50 mg {Co-Signature: nancy (Hazel Navarro RN).} Route: IV; Rate: sg calculated rate; Site: left jugular; 12:25 Drug: Heparin ([place]-Bolus with thrombolytic) - HEParin 60 units/kg {Co-Signature: ed sg (Melissa Yang RN).} Route: IVP; Site: left jugular; 12:32 Drug: Heparin ([place] Drip) 12 units/kg/hr - (HEParin 97827 units, D5W 500 ml) sg {Co-Signature: nancy (Hazel Navarro RN).} Route: IV; Rate: calculated rate; Site: left jugular; 13:01 Not Given (Physician Discretion; ER has no IA aspirin, Rafat CASTRO aware): Aspirin hb Suppository 300 mg IA once Disposition: 12:37 Critical Care:. jr8 14:48 Co-signature as Attending Physician, Agapito Thomson MD. rn Disposition: 02/05/19 11:52 Transfer ordered to [facility]. Diagnosis are Acute combined systolic (congestive) and diastolic (congestive) heart failure, Chronic obstructive pulmonary disease with (acute) exacerbation, Respiratory arrest, Chronic kidney disease (CKD), Hyperkalemia, ST elevation (STEMI) myocardial infarction involving other coronary artery of inferior wall. - Reason for transfer: Higher level of care. - Accepting physician is Dr. Riojas. - Condition is Serious. - Problem is new. - Symptoms have improved. Critical care time excluding procedures: 12:37 Critical care time: Bedside Care: 25 minutes, Consultation: 15 minutes, Family jr8 Intervention: 10 minutes. Total time: 50 minutes Signatures: Dispatcher [employer] EDEliud Castle RN RN sg Villarreal, Maria ms Nieto, Roman, MD MD rn Roszak, Josh, PA PA jr8 Melissa Yang RN RN Hazel Navarro RN RN jl7 Melissa Navarro RN jl7 Corrections: (The following items were deleted from the chart) 11:52 11:52 02/05/2019 11:52 Transfer ordered to [facility]. Diagnosis is jr8 Acute combined systolic (congestive) and diastolic (congestive) heart failure; Chronic obstructive pulmonary disease with (acute) exacerbation; Respiratory arrest; Chronic kidney disease (CKD). Reason for transfer: Higher level of care. Accepting physician is Dr. Riojas. Condition is Serious. Problem is new. Symptoms have improved. jr8 12:36 11:52 02/05/2019 11:52 Transfer ordered to [facility]. Diagnosis is jr8 Acute combined systolic (congestive) and diastolic (congestive) heart failure; Chronic obstructive pulmonary disease with (acute) exacerbation; Respiratory arrest; Chronic kidney disease (CKD); Hyperkalemia. Reason for transfer: Higher level of care. Accepting physician is Dr. Riojas. Condition is Serious. Problem is new. Symptoms have improved. jr8 13:01 12:36 02/05/2019 11:52 Transfer ordered to [facility]. Diagnosis is hb Acute combined systolic (congestive) and diastolic (congestive) heart failure; Chronic obstructive pulmonary disease with (acute) exacerbation; Respiratory arrest; Chronic kidney disease (CKD); Hyperkalemia; ST elevation (STEMI) myocardial infarction involving other coronary artery of inferior wall. Reason for transfer: Higher level of care. Accepting physician is Dr. Riojas. Condition is Serious. Problem is new. Symptoms have improved. jr8
--- NOTE | 2019-02-05 11:53 | ER ---
Nurse's Notes [facility] Name: Lili Hernandez Age: 63 yrs Sex: Female : 1955 Arrival Date: 02/05/2019 Time: 09:07 Bed 4 Private MD: Diagnosis: Acute combined systolic (congestive) and diastolic (congestive) heart failure;Chronic obstructive pulmonary disease with (acute) exacerbation;Respiratory arrest;Chronic kidney disease (CKD);Hyperkalemia;ST elevation (STEMI) myocardial infarction involving other coronary artery of inferior wall Presentation: 02/05 09:08 Presenting complaint: Pt stating "help me, help me, I can't breathe.". Transition of hb care: patient was not received from another setting of care. Onset of symptoms is unknown. Risk Assessment: Do you want to hurt yourself or someone else? Unable to obtain. 09:08 Method Of Arrival: Wheelchair hb 09:15 Acuity: ERNA 1 hb 09:15 Initial Sepsis Screen: Does the patient meet any 2 criteria? RR > 20 per min. No. sg Patient's initial sepsis screen is negative. Does the patient have a suspected source of infection? No. Patient's initial sepsis screen is negative. Care prior to arrival: None. Triage Assessment: 09:12 General: Appears distressed, Behavior is agitated, anxious, restless. Pain: Denies sg pain. Respiratory: Reports shortness of breath at rest on exertion air hunger the patient has severe shortness of breath. Respiratory: Airway is patent Respiratory effort is even, unlabored, Respiratory pattern is regular, symmetrical. Historical: - Allergies: 09:36 Bactrim; hb 09:36 Doxycycline; hb 09:36 Iodine; hb 09:36 TRIMETHOPRIM; hb - Home Meds: 09:36 aspirin 81 mg Oral TbEC 1 tab once daily [Active]; Crestor 40 mg Oral tab 1 tab once hb daily [Active]; furosemide 40 mg Oral tab 1 tab once daily [Active]; levothyroxine 75 mcg tab 1 tab once daily [Active]; Nitrostat 0.4 mg SL subl 1 tab every 5 minutes [Active]; Plavix 75 mg Oral tab 1 tab once daily [Active]; - PMHx: 09:36 COPD; Diabetes - IDDM; Dialysis; has been off dialysis for 2 years; Hypertension; hb Hypothyroidism; Myocardial infarction; Renal Disease; - PSHx: 09:36 Heart stents; dialysis shunt to left arm; hb - Immunization history:: Adult Immunizations unknown. - Social history:: Smoking status: unknown. - Ebola Screening: : Patient negative for fever greater than or equal to 101.5 degrees Fahrenheit, and additional compatible Ebola Virus Disease symptoms Patient denies exposure to infectious person Patient denies travel to an Ebola-affected area in the 21 days before illness onset No symptoms or risks identified at this time. Screenin:45 Abuse screen: Denies threats or abuse. Denies injuries from another. Nutritional sg screening: No deficits noted. Tuberculosis screening: No symptoms or risk factors identified. Never had TB. Fall Risk None identified. Assessment: 09:08 Reassessment: Pt in respiratory distress, pale, R40s and labored, grunting. MATTHEW Douglass at bedside. 09:15 Reassessment: Rafat CASTRO and at bedside at this time for intubation, EDGER TECHNICIAN at bedside, pt to be intubated. 09:25 Reassessment: ET tube 7.0, 21 at teeth, RR18, TW 500, PEEP 5, FiO2 50%. jl7 11:06 General: Behavior is unresponsive. pt remains on the vent at this time, awaiting admission to the ICU. Neuro: Level of Consciousness is unresponsive. Cardiovascular: Capillary refill is sluggish in bilateral fingers toes Chest pain is denied. Respiratory: Airway is patent Respiratory effort is even, relaxed, assisted with mechanical ventilation at this time Respiratory pattern is symmetrical. GI: Abdomen is round non-distended. Derm: Skin is pale. 11:33 Reassessment: Patient appears in no apparent distress at this time. Rafat CASTRO at bedside updating pt family on the need to transfer due to ICU at capacity, pt family/spouse stated understanding, orders received to place pt on Levo drip, pt medicated see EMAR. 12:08 Reassessment: Patient appears in no apparent distress at this time. Patient and/or sg family updated on plan of care and expected duration. Pain level reassessed. repeat EKG performed as ordered, shown to Rafat CASTRO. 12:35 Reassessment: [facility] at bedside at this time. sg 13:00 Reassessment: Patient appears in no apparent distress at this time. Patient and/or sg family updated on plan of care and expected duration. Pain level reassessed. pt family provided with directions to the [facility]. Vital Signs: 09:10 Pulse Ox 24% on R/A; jl7 09:15 Temp 97.7; sg 09:25 BP 151 / 73; Pulse 77; Resp 23; Pulse Ox 100% on ETT ambu; jl7 10:30 BP 103 / 67; Pulse 66; Resp 18 A; Pulse Ox 100% on ETT vent; sg 11:00 BP 93 / 64; Pulse 65 MON; Resp 18 A; Pulse Ox 100% on ETT vent; sg 11:03 Weight 140.61 kg; sg 11:35 BP 84 / 65; Pulse 63 MON; Resp 18 A; Pulse Ox 100% on ETT vent; sg 11:03 per pt sg ED Course: 09:07 Patient arrived in ED. as 09:25 Inserted saline lock: 24 gauge in left antecubital area, using aseptic technique. em1 09:28 Cool cath inserted, using sterile technique, 16 Fr., by ED staff, balloon inflated, to jl7 gravity drainage, urine specimen collected. returned cloudy urine. 09:29 Rafat Pike PA is PHCP. jr8 09:29 Agapito Thomson MD is Attending Physician. jr8 09:30 NGT: inserted 16 Fr. via left nare. verified return of gastric contents, to jl7 intermittent suction. Returned gastric contents. 09:30 First set of blood cultures drawn by me. sg 09:35 Hazel Navarro, KALYAN is Primary Nurse. jl7 09:36 Triage completed. hb 09:38 Arm band placed on. hb 09:41 EKG done, by haz tech. reviewed by Rafat CASTRO. at1 09:53 Patient has correct armband on for positive identification. Placed in gown. Bed in low jl7 position. Call light in reach. Side rails up X2. cafeteria monitor on. Pulse ox on. NIBP on. 09:56 XRAY Chest (1 view) In Process Unspecified. EDMS 10:10 Assisted provider with central line placement. Set up central line tray. Triple lumen sg line placed in left internal jugular. Line placed by Rafat CASTRO Placement verified by CXR, blood return, Dressed with Tegaderm, Blood was collected. Patient tolerated well. Before procedure, did Practitioner(s) obtain informed consent? No. Patient \\T\\ family education about procedure, CLABSI prevention and S/S of infection? No. Time-out/Briefing performed prior to start of procedure? Yes. Was handwashing/sanitizing done immediately prior to procedure? Yes. Was patient positioned to in a way to prevent air embolism? Yes. Was procedure site sterilized? Yes, with chlorhexidine. Was the site allowed to dry? Yes. Was local anesthetic and/or sedation utilized? Yes. During the procedure, did the Practitioner(s) maintain a sterile field? Yes. Were unused ports clamped during insertion? Yes. Was a 2nd qualified MD obtained after 3 unsuccessful insertion attempts? No. Was blood aspirated from each lumen? Yes. After the procedure, did the Practitioner(s) clean the site and apply a sterile dressing? Yes. 10:30 Second set of blood cultures drawn by physician. sg 10:36 Chest Single View XRAY In Process Unspecified. EDMS 11:01 Eliud Mckeon RN is Primary Nurse. sg 13:00 Patient transferred, IV remains in place. intact, No redness/swelling at site. sg Administered Medications: Discontinued: vancoMYCIN 1 grams IVPB once over 2 hrs 09:24 Drug: Etomidate 20 mg Route: IVP; Site: left antecubital; jl7 09:24 Drug: Succinylcholine 100 mg Route: IVP; Site: left antecubital; jl7 09:25 Drug: Propofol 5 mcg/kg/min Route: IV; Rate: calculated rate; Site: left antecubital; sg 11:32 Follow up: Response: No adverse reaction; IV SiteChange: left jugular; IV SiteChange sg Reason: Infiltration; instructed to move Propofol to central line 09:38 Drug: VecuroNIUM 10 mg Route: IVP; Site: left antecubital; jl7 10:10 Drug: Lasix 80 mg Route: IVP; Site: left antecubital; sg 10:10 Drug: Albuterol 2.5 mg Route: Inhalation; sg 11:40 Drug: Cefepime 1 grams Route: IVPB; Rate: 200 ml/hr; Infused Over: 30 mins; Site: left sg jugular; 12:25 Follow up: Response: No adverse reaction; IV Status: Completed infusion sg 11:42 Drug: Levophed (4 mg/250 mL D5W 4 mcg/min Route: IV; Rate: calculated rate; Site: left sg jugular; 12:07 Drug: vancoMYCIN 1 grams Route: IVPB; Infused Over: 2 hrs; Site: left jugular; sg 12:20 Drug: Tenecteplase 50 mg {Co-Signature: [email or web address] (Hazel Navarro RN).} Route: IV; Rate: sg calculated rate; Site: left jugular; 12:25 Drug: Heparin ([place]-Bolus with thrombolytic) - HEParin 60 units/kg {Co-Signature: hb sg (Melissa Yang RN).} Route: IVP; Site: left jugular; 12:32 Drug: Heparin ([place] Drip) 12 units/kg/hr - (HEParin 91091 units, D5W 500 ml) sg {Co-Signature: nancy (Hazel Navarro RN).} Route: IV; Rate: calculated rate; Site: left jugular; 13:01 Not Given (Physician Discretion; ER has no [place] iris, Rafat CASTRO aware): Aspirin hb Suppository 300 mg MO once Intake: Ventilator: 09:53 Fi02: 50%; Rate: 18min; T.V.: 500ml; Peep: 5cm; ET tube: 7 mm (Oral); jl7 Outcome: 11:52 ER care complete, transfer ordered by . claire 13:00 Transferred by helicopter to [facility], Transfer form completed. sg 13:00 Condition: stable 13:00 Instructed on the need for transfer, safety practices, Demonstrated understanding of instructions, pt report given to Ariadne BIGGS with Behavioral Health Aide 13:01 Patient left the ED. hb Signatures: Dispatcher [employer] EDMS Eliud Mckeon RN RN sg Ingris Mg Eric em1 Rafat Pike PA PA jr8 Tami Martínez, head filter press tender EKG Tat1 Melissa Yang RN RN Hazel Angeles RN RN jl7 Melissa Navarro RN jl7 Corrections: (The following items were deleted from the chart) 11:21 10:25 Propofol 5 mcg/kg/min IV at calculated rate in left antecubital sg sg
[2019-02-05] MEDS ORDERED: HEPARIN/D5W 25,000 UNIT/500 ML BAG IV ONE (12:13)
[2019-02-05] MEDS ORDERED: HEPARIN 5000 UNIT/ML 1 ML VIAL ONE (12:13)
[2019-02-05] MEDS ORDERED: TENECTEPLASE 50 MG/10 ML VIAL IV ONE (12:17)
[2019-02-05 12:36] LABS: Arterial Blood Carboxyhemoglob 2.5 % (0-1.5); Blood Gas Oxyhemoglobin 93.4 % (94-97); Blood O2 Saturation 96.5 % (92-98.5)
[2019-02-05] MEDS ORDERED: NA CHLORIDE 0.9% 2,000 ML ONE (12:48)
[2019-02-05 13:17] VITALS: TEMP 97.7
[2019-02-05 13:18] VITALS: O2SAT 100
[2019-02-05 13:22] VITALS: BP 84/65
--- NOTE | 2019-02-05 15:49 | EKG ---
Test Date: 2019-02-05 Test Time: 12:04:27 Glycerine Plant Operator: LINH MEASUREMENT RESULTS: Intervals: Rate: 61 WY: 158 QRSD: 78 QT: 464 QTc: 467 [place]: P: 33 WY: 158 QRS: 66 T: 61 INTERPRETIVE STATEMENTS: Normal sinus rhythm ST elevation possibly pericarditis, early repolarization or injury Abnormal ECG Compared to ECG 02/05/2019 09:46:49 no significant change from previous ECG Electronically Signed On 02-05-19 15:49:25 CDT by Darron Champagne
== END 2019-02-05 13:01 | disposition short-term general hospital (02) ==
LOC: ER 09:06
DX: I50.41 Acute combined systolic (congestive) and diastolic (congestive) heart failure (principal); I21.19 ST elevation (STEMI) myocardial infarction involving other coronary artery of inferior wall; N18.9 Chronic kidney disease, unspecified; J44.1 Chronic obstructive pulmonary disease with (acute) exacerbation; E87.5 Hyperkalemia; R09.2 Respiratory arrest; Z88.1 Allergy status to other antibiotic agents; Z88.3 Allergy status to other anti-infective agents; Z91.09 Other allergy status, other than to drugs and biological substances; E03.9 Hypothyroidism, unspecified; Z99.2 Dependence on renal dialysis; I10 Essential (primary) hypertension
CPT/HCPCS: 92977; 93005 ×2; 87040 ×2; 85025; 80048; 36415; 83735; 87205; 85610; 80076; 83605; 81003; 84484; 83880; 71045 ×2; 94002; 82805; 31500; 51702; 99291; 99292; J0330; J1644; J2704; J3101; J3370; J0692 ×2; J7030